=== PATIENT | male | born 1945 | race Caucasian/White ===

== ENCOUNTER 2025-10-25 20:09 | Inpatient (IN) | payer MEDICARE, OTHER ==
[~2025-10-25] VITALS: Ht 188 cm; Wt 77.0 kg
--- NOTE | 2025-10-25 20:16 | ED.PDOC ---
History of Present Illness HPI Comments 79-year-old male BIBA with prior medical history of [place], mi, hypertension, angina, hypotension, high lipids, TIA: Surgical history of cardiac stent, pacemaker, appendectomy, hernia repair, tonsillectomy and a chief complaint of chest pain. EMS report on the patient having had substernal chest pain upon pal pitation which radiates to the left arm in his a 9/10 on the pain scale which started today and was given 2 nitro and 325 mg of aspirin by spouse. EMS state that the patient was picked up at home in was given 150 mL of fluids due from having a blood pressure systolic of 104. Patient had a blood sugar 104 in route to the ER. Patient has currently complaining of the chest pain and nausea at this time. Denies any other symptoms at this time. Denies chills, fever, /V/D, SOB. No other associated symptoms, modifiers, recent injuries or sick contacts present at this time. Time Seen by MD: 20:15 Reviewed Notes: Nurses Notes, Medications, Allergies Allergies: Coded Allergies: NO KNOWN ALLERGIES (Unverified , 02/12/25) Information Source: Patient, Emergency Med Personnel Mode of Arrival: EMS Severity: Moderate Timing: Came on: Suddenly Duration: Since onset Prehospital treatment: None Past Medical History PAST MEDICAL HISTORY: High Lipids, HTN, Hypotension, ID, TIA Past Medical History (Other): [place] Surgical History: Appendectomy, Hernia Repair, Pacemaker, Tonsillectomy Surgical History (Other): Cardiac stent Family History Family History: Reviewed,noncontributory to illness, Family hx of Cancer, Family hx of heart ilsa, Family hx of Kidney ilsa Social History Smoker: Non-Smoker Alcohol: Denies ETOH Use Drugs: Denies Drug Use Lives In: Home Constitutional: denies: chills, diaphoresis, fatigue, fever, malaise, sweats, weakness, others EENTM: denies: blurred vision, double vision, ear bleeding, ear discharge, ear drainage, ear pain, ear ringing, eye pain, eye redness, hearing loss, mouth pain, mouth swelling, nasal discharge, nose bleeding, nose congestion, nose pain, photophobia, tearing, throat pain, throat swelling, voice changes, others Respiratory: denies: cough, hemoptysis, orthopnea, SOB at rest, shortness of breath, SOB with excertion, stridor, wheezing, others Cardiovascular: reports: chest pain, left arm pain; denies: dizzy spells, diaphoresis, Dyspnea on exertion, edema, irregular heart beat, lightheadedness, palpitations, PND, syncope, others Gastrointestinal: reports: nausea; denies: abdomen distended, abdominal pain, blood streaked bowels, constipated, diarrhea, dysphagia, difficulty swallowing, hematemesis, melena, poor appetite, poor fluid intake, rectal bleeding, rectal pain, vomiting, others Genitourinary: denies: burning, dysuria, flank pain, frequency, hematuria, incontinence, penile discharge, penile sore, pain, testicle pain, testicle swelling, urgency, others Neurological: denies: dizziness, fainting, headache, left sided numbness, left sided weakness, numbness, paresthesia, pre-existing deficit, right sided numbness, right sided weakness, seizure, speech problems, tingling, tremors, weakness, others Musculoskeletal: denies: back pain, gout, joint pain, joint swelling, muscle pain, muscle stiffness, neck pain, others Integumetry: denies: bruises, change in color, change in hair/nails, dryness, laceration, lesions, lumps, rash, wounds, others Allergic/Immunocompromised: denies: Difficulty Healing, Frequent Infections, Hives, Itching, others Hematologic/Lymphatic: denies: anemia, blood clots, easy bleeding, easy bruising, swollen glands, others Endocrine: denies: excessive hunger, excessive sweating, excessive thirst, excessive urination, flushing, intolerance to cold, intolerance to heat, unexplained weight gain, unexplained weight loss, others Psychiatric: denies: anxiety, bipolar disorder, depression, hopeless, panic disorder, schizophrenia, sleepless, suicidal, others All Other Systems: Reviewed and Negative Physical Exam General Appearance: Moderate Distress HEENT: Normal ENT Inspection, Pharynx Normal, TMs Normal Neck: Full Range of Motion, Non-Tender, Normal, Normal Inspection Respiratory: Chest Non-Tender, Lungs Clear, No Accessory Muscle Use, No Respiratory Distress, Normal Breath Sounds Cardiovascular: No Edema, No JVD, No Murmur, No Gallop, Normal Peripheral Pulses, Regular Rate/Rhythm, Other (Pacemaker to the left chest) Breast Exam: Deferred Gastrointestinal: No Organomegaly, Non Tender, No Pulsatile Mass, Normal Bowel Sounds, Soft Genitalia: Deferred Pelvic: Deferred Rectal: Deferred Extremities: No calf tenderness, Normal capillary refill, Normal inspection, Normal range of motion, Non-tender, No pedal edema Musculoskeletal : Apperance: Normal Neurologic: Alert, labor utilization superintendent II-XII nml as Tested, Motor Weakness, Normal Affect, Normal Mood, No Sensory Deficits Cerebellar Function: Normal Reflexes: Normal Skin: Dry, Normal Color, Warm Lymphatic: No Adenopathy Was a procedure done? Was a procedure done?: No EKG EKG : Pulse Rate (adult): 64 [place]: Normal Cardiac Rhythm: Paced Block: None Hypertrophy: None ST: Normal Differential Dx Considerations may include: ACS, ID, generalized weakness X-Ray, Labs, Meds, VS Vital Signs Date Time Temp Pulse Resp B/P (MAP) Pulse Ox O2 Delivery O2 Flow Rate FiO2 10/25/25 21:14 62 10/25/25 20:16 64 10/25/25 20:15 98.9 101 15 103/86 100 98.9 10/25/25 20:11 64 Lab Test 10/25/25 21:09 10/25/25 20:20 Range/Units Troponin I High Sensitivity Pending 13 </=54 ng/L White Blood Count 8.6 4.4-10.8 10^3/uL Red Blood Count 3.68 L 4.5-5.90 10^6/uL Hemoglobin 11.8 L 13.5-17.5 g/dL Hematocrit 34.6 L 41.0-53.0 % Mean Corpuscular Volume 94.1 80.0-100.0 fL Mean Corpuscular Hemoglobin 32.0 28.0-32.0 pg Mean Corpuscular Hemoglobin Concent 34.0 32.0-36.0 g/dL Red Cell Distribution Width 15.1 H 11.8-14.3 % Platelet Count 141 140-450 10^3/uL Mean Platelet Volume 10.1 6.9-10.8 fL Neutrophils (%) (Auto) 71.1 37.0-80.0 % Lymphocytes (%) (Auto) 17.2 10.0-50.0 % Monocytes (%) (Auto) 8.7 0.0-12.0 % Eosinophils (%) (Auto) 2.5 0.0-7.0 % Basophils (%) (Auto) 0.5 0.0-2.0 % Neutrophils # (Auto) 6.1 1.6-8.6 10 ^3/uL Lymphocytes # (Auto) 1.5 0.4-5.4 10 ^3/uL Monocytes # (Auto) 0.7 0-1.3 10 ^3/uL Eosinophils # (Auto) 0.2 0-0.8 10 ^3/uL Basophils # (Auto) 0 0-0.2 10 ^3/uL Nucleated Red Blood Cells 0.0 % Sodium Level 140 136-145 mmol/L Potassium Level 3.8 3.5-5.1 mmol/L Chloride Level 107 98-107 mmol/L Carbon Dioxide Level 22 20-31 mmol/L Anion Gap 11 5-15 Blood Urea Nitrogen 21 9-23 mg/dL Creatinine 0.54 L 0.700-1.30 mg/dL Glomerular Filtration Rate Calc 101 >90 mL/min BUN/Creatinine Ratio 38.9 H 10.0-20.0 Serum Glucose 104 74-106 mg/dL Calcium Level 8.2 L 8.7-10.4 mg/dL IV Hep-Lock was established. The patient's CBC and chemistry panel are within normal limits The 1st troponin level is within normal limits. At this time, the patient is being admitted The chest x-ray shows no sign of any abnormalities The patient is being admitted at this time Images Reviewed?: Images reviewed and evaluated by me Time of 1ST Reevaluation: 20:45 Reevaluation 1ST: Unchanged Patient Education/Counseling: Diagnosis, Treatment, Prognosis Family Education/Counseling: No Family Present SEPSIS Sepsis Screen Physician Orders Chest Portable (10/25/25 20:23) Heplock Iv (10/25/25 20:10) Tie Puller (10/25/25 20:10) Blood Pressure (10/25/25 20:10) Pulse Oximetry (10/25/25 20:10) Urinalysis (10/25/25 20:10) Troponin-I Hs (10/25/25 21:10) Troponin-I Hs (10/25/25 23:10) Electrocardigram (10/25/25 23:10) Vital Signs Date Time Temp Pulse Resp B/P (MAP) Pulse Ox O2 Delivery O2 Flow Rate FiO2 10/25/25 21:14 62 10/25/25 20:16 64 10/25/25 20:15 98.9 101 15 103/86 100 98.9 10/25/25 20:11 64 Laboratory Tests Test 10/25/25 20:20 White Blood Count 8.6 10^3/uL (4.4-10.8) Departure 1 Departure Time of Disposition: 21:33 Impression: Primary Impression: Acute coronary syndrome Disposition: 09 ADMITTED INPATIENT Admit to: Tele Condition: Fair Critical Care Note Critical Care Time?: Yes (45 min-critical care time only) Stability Stability form required: Yes Unstable for transfer: Telemetry monitoring (Telemetry monitoring required), ED Physician Assesment (Clinical assesment) Heart Score Heart Score: Heart Score Response (Comments) Value History Moderate Suspicious 1 EKG Repolarization Disturb 1 Age >65 2 Risk Factors >3 or Hx ASHD 2 Troponin Normal limit 0 Total 6 I personally scribed for PREETHI REILLY MD ([email or web address]) on 10/25/25 at 20:16. Electronically submitted by Anthony Roach ([email or web address]). PREETHI REILLY MD Oct 25, 2025 20:16
--- NOTE | 2025-10-25 20:24 | ECG ---
[facility] Test Date: 2025-10-25 Test Time: 20:11:58 Pat Name: PANCHO RODRIGUEZ Department: ED Room: 0292T Gender: M Desulphuring Operator: MORELIA : 1945 Requested By: PREETHI REILLY Order Number: [id number] Reading MD: Angelo Jeff Measurements Intervals [place] Rate: 64 P: 62 [place]: 64 QRS: 269 QRSD: 153 T: 61 QT: 450 QTc: 465 Interpretive Statements Atrial-sensed ventricular-paced rhythm No further analysis attempted due to paced rhythm Electronically Signed On 10-26-2025 17:49:01 PST by Angelo Jeff Please click the below link to view image of tracing.
[2025-10-25 20:31] LABS: Hematocrit 34.6 % (41.0-53.0); Hemoglobin 11.8 g/dL (13.5-17.5); Mean Corpuscular Hemoglobin 32.0 pg (28.0-32.0); Mean Corpuscular Volume 94.1 fL (80.0-100.0); Nucleated Red Blood Cells % 0.0 %
[2025-10-25 20:40] LABS: Potassium 3.8 mmol/L (3.5-5.1); Sodium 140 mmol/L (136-145)
[2025-10-25 20:41] LABS: Anion Gap 11 (5-15); Carbon Dioxide 22 mmol/L (20-31)
[2025-10-25 20:46] LABS: BUN/Creatinine Ratio 38.9 (10.0-20.0); Blood Urea Nitrogen 21 mg/dL (9-23); Glucose 104 mg/dL (74-106)
[2025-10-25 20:48] LABS: Calcium 8.2 mg/dL (8.7-10.4); Chloride 107 mmol/L (98-107)
--- NOTE | 2025-10-25 21:00 | DVH ---
CHEST RADIOGRAPH Indication: cp Technique: Single frontal view of the chest was obtained Comparison: XY CHEST PORTABLE on DOS: 06/28/25, XY CHEST PORTABLE on DOS: 10/26/24, XY CHEST PORTABLE on DOS: 06/18/24 FINDINGS: Lines and Tubes: None Lungs: No focal consolidation. Pleura: No effusion. No pneumothorax. Cardiomediastinal contours: Heart size is within normal limits with mild atherosclerotic calcification and uncoiling of the aorta. Left-sided approach dual lead pacemaker terminating within right atrium and right ventricle. Bones: No acute osseous abnormality. IMPRESSION: No acute cardiopulmonary disease.
--- NOTE | 2025-10-25 21:17 | ECG ---
[facility] Test Date: 2025-10-25 Test Time: 21:14:23 Pat Name: PANCHO RODRIGUEZ Department: ED Room: 0292T Gender: M Meter And Service Line Inspector: MORELIA : 1945 Requested By: PREETHI REILLY Order Number: [id number] Reading MD: Angelo Jeff Measurements Intervals [place] Rate: 62 P: 0 LA: 221 QRS: 267 QRSD: 153 T: 65 QT: 454 QTc: 461 Interpretive Statements Ventricular-paced rhythm No further analysis attempted due to paced rhythm Electronically Signed On 10-26-2025 17:49:05 PST by Angelo Jeff Please click the below link to view image of tracing.
[2025-10-25] MEDS ORDERED: NITROGLYCERIN 0.4 MG SL TAB SL PRN (22:00)
[2025-10-25] MEDS ORDERED: MORPHINE SULFATE INJ 2 MG/ml SYRG IV PRN (22:00)
[2025-10-25] MEDS: PANTOPRAZOLE 40 MG TAB PO ONE (22:30)
--- NOTE | 2025-10-25 22:37 | DVHHPRES ---
History of Present Illness Resident Creating Document: MATILDE ZALDIVAR RESIDENT History of Present Illness This is a 79-year-old male with past medical history ofMI ,1stent placed on 2021, HTN, hypotension, HLD, TIA, PPM since 1990,appendectomy, hernia repair, tonsillectomy , GERD, BPH, Dupuytren contracture both hand, hypertension, bed- bound since 2022 after stroke brought by EMS due to chest pain which is 9/10 intensity, retrosternal, localized, no aggravating or relieving factor. As per patient, provided him 2 dose of nitroglycerin 5 minutes apart but chest pain not relieved. Family member called 911, EMS given 325 mg of aspirin and brought to the hospital. Patient looks anxious and stated he had panic attack when he felt chest pain and now chest pain improving to 6/10 intensity. Patient seen by Dr. Cardona, pacemaker since 1990 and pacemaker checked 2 years ago. Angiogram followed by 1 stent placed on 2021. Patient compliance is medication and currently denies any headache, fever, SOB, abdominal pain, dysuria. Past medical history: As above Past surgical history: Stent placed on 2021, appendectomy, hernia repair, tonsillectomy Family history: Nothing contributory Personal history: Denies any smoking, illicit drug use or EtOH use Allergy: No known allergy PCP: Dr. Coleman Home medication: pantoprazole, atorvastatin, finasteride, Lopid mobile, KCl, propranolol, pregabalin, losartan, cyclobenzaprine, midodrine, Review of Systems Constitutional: Yes: Chills, Weakness, Malaise; No: Fever, Sweats, Other Eyes: No: Pain, Vision change, Conjunctivae inflammation, Eyelid inflammation, Other, Redness ENT: Other (Hearing difficulty); No: Ear pain, Ear discharge, Nose pain, Nose discharge, Nose congestion, Mouth pain, Mouth swelling, Throat pain, Throat swelling Respiratory: No: Cough, Dry, Shortness of breath, SOB with excertion, Wheezing, Hemoptysis, Pleuritic Pain, Sputum, Wheezing, Other Cardiovascular: Chest Pain, Palpitations; No: Orthopnea, Paroxysmal Noc. Dyspnea, Edema, Lt Headedness, Other Gastrointestinal: No: Nausea, Vomiting, Abdominal Pain, Diarrhea, Constipation, Melena, Hematochezia, Other Genitourinary: No Dysuria, No Frequency, No Incontinence, No Hematuria, No Retention, No Other Musculoskeletal: back pain; No: other, neck pain, shoulder pain, arm pain, hand pain, leg pain, foot pain Skin: No: Rash, Lesions, Jaundice, Bruising, Other Neurological: Weakness, Other (Gait instability and bed-bound); No: Numbness, Incoordination, Change in speech, Confusion, Seizures Allergies: Coded Allergies: NO KNOWN ALLERGIES (Unverified , 02/12/25) Medications Current Medications Medications Dose Ordered Sig/Juan Route Start Time Stop Time Status Last Admin Dose Admin Acetaminophen/ Hydrocodone Bitart 1 tab Q4HP PRN PO 10/25/25 22:00 UNV Enoxaparin Sodium 40 mg DAILY SC 10/26/25 10:00 UNV Nitroglycerin 0.4 mg Q5MINP PRN SL 10/25/25 22:00 UNV Morphine Sulfate 2 mg Q30M PRN IV 10/25/25 22:00 UNV Polyethylene Glycol 17 gm DAILY PO 10/26/25 10:00 UNV Pantoprazole Sodium 40 mg DAILY@0600 PO 10/26/25 06:00 UNV Exam Vital Signs Vital Signs Date Time Temp Pulse Resp B/P (MAP) Pulse Ox O2 Delivery O2 Flow Rate FiO2 10/25/25 21:14 62 10/25/25 20:15 98.9 15 103/86 100 98.9 General Appearance: Alert, Oriented X3, Cooperative, mild distress HEENT: Atraumatic, PERRLA, EOMI Respiratory: Clear to auscultation Cardiovascular: Regular rate, Normal S1, Normal S2, No murmurs Abdominal: Normal bowel sounds, Soft, No tenderness Extremities: No clubbing, No cyanosis, No edema, Normal pulses, No tenderness/swelling Skin: No rashes, No breakdown, No significant lesion Neuro: Sensation intact, Other (Gait instability, macerated decreased bilateral lower, Dupuytren contracture bilateral hands) Labs/Xrays Labs Test 10/25/25 21:09 10/25/25 20:20 Range/Units Troponin I High Sensitivity 13 </=54 ng/L White Blood Count 8.6 4.4-10.8 10^3/uL Red Blood Count 3.68 L 4.5-5.90 10^6/uL Hemoglobin 11.8 L 13.5-17.5 g/dL Hematocrit 34.6 L 41.0-53.0 % Mean Corpuscular Volume 94.1 80.0-100.0 fL Mean Corpuscular Hemoglobin 32.0 28.0-32.0 pg Mean Corpuscular Hemoglobin Concent 34.0 32.0-36.0 g/dL Red Cell Distribution Width 15.1 H 11.8-14.3 % Platelet Count 141 140-450 10^3/uL Mean Platelet Volume 10.1 6.9-10.8 fL Neutrophils (%) (Auto) 71.1 37.0-80.0 % Lymphocytes (%) (Auto) 17.2 10.0-50.0 % Monocytes (%) (Auto) 8.7 0.0-12.0 % Eosinophils (%) (Auto) 2.5 0.0-7.0 % Basophils (%) (Auto) 0.5 0.0-2.0 % Neutrophils # (Auto) 6.1 1.6-8.6 10 ^3/uL Lymphocytes # (Auto) 1.5 0.4-5.4 10 ^3/uL Monocytes # (Auto) 0.7 0-1.3 10 ^3/uL Eosinophils # (Auto) 0.2 0-0.8 10 ^3/uL Basophils # (Auto) 0 0-0.2 10 ^3/uL Nucleated Red Blood Cells 0.0 % Sodium Level 140 136-145 mmol/L Potassium Level 3.8 3.5-5.1 mmol/L Chloride Level 107 98-107 mmol/L Carbon Dioxide Level 22 20-31 mmol/L Anion Gap 11 5-15 Blood Urea Nitrogen 21 9-23 mg/dL Creatinine 0.54 L 0.700-1.30 mg/dL Glomerular Filtration Rate Calc 101 >90 mL/min BUN/Creatinine Ratio 38.9 H 10.0-20.0 Serum Glucose 104 74-106 mg/dL Calcium Level 8.2 L 8.7-10.4 mg/dL SEPSIS Sepsis Screen Date sepsis recognized/suspect: Oct 25, 2025 Time Sepsis recognized/suspect: 2007 Recent Procedure: No On Antibiotic Therapy: No Respiratory Rate >20: No Heart Rate >90: Yes Temp<36 C (96.8 F) or >38.3 C: No SBP <90 or MAP <65 mmHG: No New Acute Mental Status Change: No Is the patient on CPAP, BIPAP,: No Physician Orders Chest Portable (10/25/25 20:23) Heplock Iv (10/25/25 20:10) Postal Support Employee (10/25/25 20:10) Blood Pressure (10/25/25 20:10) Pulse Oximetry (10/25/25 20:10) Urinalysis (10/25/25 20:10) Troponin-I Hs (10/25/25 23:10) Electrocardigram (10/25/25 23:10) Admit (10/25/25 21:58) Code Status (10/25/25 21:58) Hydrocodone-Acet 5/325mg Tab ([place] 5/32 (10/25/25 22:00) Enoxaparin Sodium (Lovenox) (10/26/25 10:00) Cardiac Diet-2gna,Lofat,Lochol (10/26/25 Breakfast) Echo 2d Mode Cardiac Dop (10/25/25 21:58) Nitroglycerin Sublingual (Ntrostat Subli (10/25/25 22:00) Morphine Sulfate Injection (10/25/25 22:00) Oxygen By Nasal Cannula (10/25/25 21:58) Stat Ekg For Chest Pain (10/25/25 21:58) Notify Md Of Changes From Base (10/25/25 21:58) Headwaitress For 24 Hours (10/25/25 21:58) Emergency Dysrhythmia Protocol (10/25/25 21:58) Rhythm Strips Once Every Shift (10/25/25 21:58) Polyethylene Glycol 17g Powder (Miralax (10/26/25 10:00) Pantoprazole Tablet (Protonix Tablet) (10/26/25 06:00) Pantoprazole Tablet (Protonix Tablet) (10/25/25 22:00) Vital Signs Date Time Temp Pulse Resp B/P (MAP) Pulse Ox O2 Delivery O2 Flow Rate FiO2 10/25/25 21:14 62 10/25/25 20:16 64 10/25/25 20:15 98.9 101 15 103/86 100 98.9 10/25/25 20:11 64 Laboratory Tests Test 10/25/25 20:20 White Blood Count 8.6 10^3/uL (4.4-10.8) Assessment/Plan Assessment/Plan Chest pain rule out acute coronary syndrome H/o MO s/p 1 stent placed on 2021 Hypertensive heart disease Pacemaker since 1990 Hyperlipidemia Patient came with chest pain, nausea, palpitation S/P Nitroglycerin and aspirin ON ADMISSION, tachycardia, BP - 103/86 Troponin: 13, repeat troponin 13 CXR: No acute cardiopulmonary, left-sided ppm. EKG: ventricular paced rhythm, heart rate 64, QTC 465 Clopidogrel Propranolol Losartan Echocardiogram Pacemaker interrogation Telemonitor History of stroke 2021 since then bed-bound Chronic low-back pain Dupuytren's contracture both hands Peripheral neuropathy Pressure sores right heel Pregabalin Cyclobenzaprine Fall precaution wound Consult Physical therapy GERD Continue pantoprazole BPH Finasteride Anemia of chronic disease Hemoglobin 11.8, HCT 34.6, MCV 94.1, RDW 15.1 No active signs symptoms of bleeding Hypocalcemia serum consult rate 8.2 follow labs Diet: Cardiac DVT prophylaxis: Lovenox GI prophylaxis: Pantoprazole Goals of care discussions. More than 29 minute spent with patient. Full code status. Case discussed with Dr. Quigley Plan discussed with: Patient, Other (Nurse) My Orders Orders - MATILDE ZALDIVAR RESIDENT Procedure Category Date Status Time Admit ADMIT 10/25/25 Transmitted 21:58 Code Status CODE 10/25/25 Transmitted 21:58 Hydrocodone-Acet PHA 10/25/25 Logged 5/325mg Tab ([place] 22:00 Enoxaparin Sodium PHA 10/26/25 Logged (Lovenox) 10:00 Cardiac DIET 10/26/25 Transmitted Diet-2gna,Lofat,Lochol Breakfast Echo 2d Mode Cardiac US 10/25/25 Logged DOP 21:58 Nitroglycerin PHA 10/25/25 Logged Sublingual (Ntrostat 22:00 Morphine Sulfate PHA 10/25/25 Logged Injection 22:00 Oxygen By Nasal RT 10/25/25 Transmitted Cannula 21:58 Stat Ekg For Chest [facility] 10/25/25 In Process Pain 21:58 Notify Of Changes [facility] 10/25/25 In Process From Base 21:58 Headwaitress For [facility] 10/25/25 In Process 24 Hours 21:58 Emergency Dysrhythmia [facility] 10/25/25 In Process Protocol 21:58 Rhythm Strips Once [facility] 10/25/25 In Process Every Shift 21:58 Polyethylene Glycol PHA 10/26/25 Logged 17g Powder (Miralax 10:00 Pantoprazole Tablet PHA 10/26/25 Logged (Protonix Tablet) 06:00 Pantoprazole Tablet PHA 10/25/25 Logged (Protonix Tablet) 22:00 Date of Service: Oct 25, 2025 Billing Provider: CHRISTINA QUIGLEY MD Common Visit Codes: 14937-WWYYEFN INP/OBS CARE (HIGH) Secondary Visit Codes: 36481-[id number] CARE PLAN 30 MINUTES MATILDE ZALDIVAR RESIDENT Oct 25, 2025 22:37
[2025-10-25 23:00] VITALS: PULSE 60; RESP 11; O2SAT 97
[2025-10-25] MEDS: PROPRANOLOL HCL 20 MG TAB PO ONE (23:00)
--- NOTE | 2025-10-25 23:11 | ECG ---
[facility] Test Date: 2025-10-25 Test Time: 23:09:18 Pat Name: PANCHO RODRIGUEZ Department: ED Room: 0292T Gender: M Claim Benefit Specialist: MORELIA : 1945 Requested By: PREETHI REILLY Order Number: [id number] Reading MD: Angelo Jeff Measurements Intervals [place] Rate: 60 P: 0 [place]: 166 QRS: -90 QRSD: 161 T: 58 QT: 477 QTc: 477 Interpretive Statements Atrial-ventricular dual-paced complexes No further analysis attempted due to paced rhythm Electronically Signed On 10-26-2025 17:50:19 PST by Angelo Jeff Please click the below link to view image of tracing.
[2025-10-25] MEDS: ATORVASTATIN 20 MG TAB PO ONE (23:37)
[2025-10-26] VITALS (9 sets, daily range): BP systolic 85–121; BP diastolic 37–74; PULSE 70–81; RESP 16–19; TEMP 96.6–98.7; O2SAT 94–97
[2025-10-26 00:38] LABS: Urine Protein, UAD Negative (Negative)
[2025-10-26] MEDS: MORPHINE SULFATE 4 MG/ML SYR/VIAL IV ONE (04:27)
[2025-10-26] MEDS: PANTOPRAZOLE 40 MG TAB PO SCH (05:56)
[2025-10-26] MEDS: PREGABALIN 25 MG CAP PO SCH (05:56)
[2025-10-26] MEDS: POLYETHYLENE GLYCOL 17 GM PWDR PO SCH (09:11)
[2025-10-26] MEDS: CLOPIDOGREL BISULFATE 75 MG TAB PO SCH (09:11)
[2025-10-26] MEDS: FINASTERIDE 5 MG TAB PO SCH (09:11)
[2025-10-26] MEDS: ENOXAPARIN SOD 40 MG/0.4 ML SYRINGE SC SCH (09:12)
[2025-10-26 10:29] LABS: Hematocrit 36.2 % (41.0-53.0); Hemoglobin 12.4 g/dL (13.5-17.5); Mean Corpuscular Hemoglobin 32.1 pg (28.0-32.0); Mean Corpuscular Volume 94.1 fL (80.0-100.0); Nucleated Red Blood Cells % 0.0 %
[2025-10-26 10:42] LABS: Alanine Aminotransferase 14 U/L (7-40); Alkaline Phosphatase 62 U/L (46-116); Anion Gap 7 (5-15); BUN/Creatinine Ratio 30.8 (10.0-20.0); Blood Urea Nitrogen 20 mg/dL (9-23); Calcium 8.7 mg/dL (8.7-10.4); Carbon Dioxide 27 mmol/L (20-31); Chloride 104 mmol/L (98-107); Cholesterol 90 mg/dL (< 200); Potassium 4.0 mmol/L (3.5-5.1); Sodium 138 mmol/L (136-145); Total Protein 5.8 g/dL (5.7-8.2); Triglycerides 65 mg/dL (< 150)
[2025-10-26 10:43] LABS: Albumin 3.1 g/dL (3.2-4.8); Bilirubin, Total 1.3 mg/dL (0.2-1.0); Glucose 123 mg/dL (74-106); HDL Cholesterol 28 mg/dL (40-59)
--- NOTE | 2025-10-26 13:44 | ECG ---
[facility] Test Date: 2025-10-26 Test Time: 03:34:09 Pat Name: PANCHO RODRIGUEZ Department: Room: [facility]T B Gender: M Mortgage Loan Counselor: DWIGHT : 1945 Requested By: MATILDE ZALDIVAR Order Number: [id number] Reading MD: Angelo Jeff Measurements Intervals [place] Rate: 75 P: 0 LA: 76 QRS: 266 QRSD: 165 T: 68 QT: 463 QTc: 518 Interpretive Statements Sinus rhythm Short LA interval Nonspecific IVCD with LAD Anterolateral infarct, old Electronically Signed On 10-26-2025 17:38:12 PST by Angelo Jeff Please click the below link to view image of tracing.
[2025-10-26] MEDS ORDERED: ZOFR4T PO (15:04)
[2025-10-26] MEDS ORDERED: CLOP75TA28 PO (15:04)
[2025-10-26] MEDS ORDERED: MIDO5TAB22 PO (15:04)
[2025-10-26] MEDS ORDERED: NITR0.4S29 SL (15:04)
[2025-10-26] MEDS: DOCUSATE SOD 100 MG CAP PO PRN (16:11)
--- NOTE | 2025-10-26 19:24 | DVHSR ---
APPROVED REPORT EXAM: Two-dimensional and M-mode echocardiogram with Doppler and color Doppler. Blood Pressure: 109/64 mmHg INDICATION History of stent Surgery/Intervention Pacemaker: RISK FACTORS Height: 6'2", DIMENSIONS LVDd 4.0 (3.8-5.7cm) LA (2D) 3.5 (1.9-4.0cm) Aortic Root (2.0-3.7cm) LVDs 2.8 (2.5-4.0cm) LA (MM) (1.9-4.0cm) Aortic Cusp Exc (1.5-2.0cm) EF (%) 56.0 (55-70%) Rt. Atrium (1.9-4.0cm) Asc. Aorta cm Mitral Valve Mitral Mitral Stenosis E/A ratio 0.0 2D MVA cm2 Aortic Valve Aortic Valve Aortic Stenosis V1 0.91m/s AO Mean GR. 5mmHg V2 1.51m/s AO Peak GR. 9mmHg LVOT Diameter 2.0 (1.8-2.4cm) Doppler KEYLA 1.89cm2 AI P 1/2 Time 498.99ms Other Information Quality : Technically Limited Rhythm : Technically limited study due to body habitus and patient position. Conclusion Technically good study. Sinus rhythm. Concentric LVH. Left atrial enlargement. Mild aortic sclerosis. Tricuspid and pulmonic or structurally normal the mitral is normal. Left ventricular function is preserved at 60% with normal RV function. There is impaired diastolic relaxation based on mitral inflow patterns. Impaired diastolic relaxation/diastolic dysfunction. [id number] aortic insufficiency. Moderate tricuspid regurgitation. No pericardial effusion masses or vegetations.
[2025-10-26] MEDS: ATORVASTATIN 20 MG TAB PO SCH (22:46)
[2025-10-27] VITALS (8 sets, daily range): BP systolic 101–109; BP diastolic 52–65; PULSE 78–92; RESP 16–19; TEMP 96.7–98.7; O2SAT 92–99
[2025-10-27] MEDS: HYDROcodone-ACET 5/325MG TAB PO PRN (04:16)
--- NOTE | 2025-10-27 16:34 | DVHPN2 ---
Subjective I am assuming the care of the patient from today onwards patient is here for chest pain. Changes from previous H/P or p: No Changes Eyes: No Pain, No Vision change, No Conjunctivae inflammation, No Eyelid inflammation, No Other, No Redness ENT: No Ear pain, No Ear discharge, No Nose pain, No Nose discharge, No Nose congestion, No Mouth pain, No Mouth swelling, No Throat pain, No Throat swelling; Other (Hearing difficulty) Cardiovascular: Chest Pain, Palpitations; No Orthopnea, No Paroxysmal Noc. Dyspnea, No Edema, No Lt Headedness, No Other Respiratory: No Cough, No Dry, No Shortness of breath, No SOB with excertion, No Wheezing, No Hemoptysis, No Pleuritic Pain, No Sputum, No Other Gastrointestinal: No Nausea, No Vomiting, No Abdominal Pain, No Diarrhea, No Constipation, No Melena, No Hematochezia, No Other Genitourinary: No Dysuria, No Frequency, No Incontinence, No Hematuria, No Retention, No Other Musculoskeletal: No other, No neck pain, No shoulder pain, No arm pain; back pain; No hand pain, No leg pain, No foot pain Skin: No Rash, No Lesions, No Jaundice, No Bruising, No Other Objective Vitals Vital Signs Date Time Temp Pulse Resp B/P (MAP) Pulse Ox O2 Delivery O2 Flow Rate FiO2 10/27/25 12:57 98.0 78 16 102/60 (74) 92 98.0 10/27/25 08:00 Room Air* 0 21 Intake/Output Intake and Output 10/27/25 07:00 Intake Total 1000 ml Output Total 850 ml Balance 150 ml Intake Oral 1000 ml Output Urine Total 850 ml # Bowel Movements 5 Exam HEENT pupils are reactive Neck is supple CV is S1-S2 regular rate and rhythm Diminished breath sounds bases GI positive bowel sound 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 Medications Current Medications Medications Dose Ordered Sig/Juan Route Start Time Stop Time Status Last Admin Dose Admin Acetaminophen/ Hydrocodone Bitart 1 tab Q4HP PRN PO 10/25/25 22:00 10/27/25 04:16 1 TAB Enoxaparin Sodium 40 mg DAILY SC 10/26/25 10:00 10/27/25 08:42 40 MG Nitroglycerin 0.4 mg Q5MINP PRN SL 10/25/25 22:00 Morphine Sulfate 2 mg Q30M PRN IV 10/25/25 22:00 Polyethylene Glycol 17 gm DAILY PO 10/26/25 10:00 10/27/25 08:42 17 GM Pantoprazole Sodium 40 mg DAILY@0600 PO 10/26/25 06:00 10/27/25 06:16 40 MG Clopidogrel Bisulfate 75 mg DAILY PO 10/26/25 10:00 10/27/25 08:41 75 MG Atorvastatin Calcium 40 mg HS PO 10/26/25 22:00 10/26/25 22:46 40 MG Finasteride 5 mg DAILY PO 10/26/25 10:00 10/27/25 08:41 5 MG Pregabalin 50 mg TID PO 10/26/25 06:00 10/27/25 14:04 50 MG Docusate Sodium 100 mg DAILYPRN PRN PO 10/26/25 15:15 10/26/25 16:11 100 MG Laboratory Results Laboratory Tests 10/26/25 10:02 Urinalysis Test 10/26/25 00:06 Urine Color Yellow (Yellow) Urine Clarity Clear (Clear) Urine pH 7.0 (5.0-9.0) Urine Specific [place] 1.031 (1.001-1.035) Urine Protein Negative (Negative) Urine Ketones 1+ (Negative) H Urine Blood Negative /uL (Negative) Urine Nitrite Negative (Negative) Urine Bilirubin Negative (Negative) Urine Urobilinogen 2 mg/dL (Negative) H Urine Leukocyte Esterase Negative /uL (Negative) Urine RBC 2 /hpf (0 - 3) Urine Microscopic WBC 1 /HPF (0-3) Urine Squamous Epithelial Cells None seen /hpf (<5) Urine Bacteria None seen /hpf (None Seen) Urine Mucus Few (None Seen) Urine Glucose Normal mg/dL (Normal) Assessment/Plan Assessment/Plan 79-year-old male with a known history of CAD status post PCI with a one stent, hypertension, status post pacemaker, dyslipidemia, history of TIA initially presented to the hospital with the chest pain found to have 1. Chest pain ruled out [place] 2. CAD status post PCI 3. Status post pacemaker 4. Hypertension 5. Dyslipidemia 6. TIA -2D echo cardiology consultation, pacemaker interrogation Plan discussed with: Patient My Orders Orders - LYLY OCHOA MD Procedure Category Date Status Time Apply Barrier Cream NEFTALI 10/26/25 In Process 14:19 * Dietary Consult CONS 10/26/25 Transmitted 17:43 Cleanse Wound With NEFTALI 10/26/25 In Process Wound Clean 17:43 Date of Service: Oct 26, 2025 Billing Provider: LYLY OCHOA MD Common Visit Codes: [id number] INP/OBS CARE(HIGH) LYLY OCHOA MD Oct 27, 2025 16:34
--- NOTE | 2025-10-27 16:35 | DVHPN2 ---
Subjective Cardiology consultation pending patient is currently denies any chest pain. Changes from previous H/P or p: No Changes Eyes: No Pain, No Vision change, No Conjunctivae inflammation, No Eyelid inflammation, No Other, No Redness ENT: No Ear pain, No Ear discharge, No Nose pain, No Nose discharge, No Nose congestion, No Mouth pain, No Mouth swelling, No Throat pain, No Throat swelling; Other (Hearing difficulty) Cardiovascular: Chest Pain, Palpitations; No Orthopnea, No Paroxysmal Noc. Dyspnea, No Edema, No Lt Headedness, No Other Respiratory: No Cough, No Dry, No Shortness of breath, No SOB with excertion, No Wheezing, No Hemoptysis, No Pleuritic Pain, No Sputum, No Other Gastrointestinal: No Nausea, No Vomiting, No Abdominal Pain, No Diarrhea, No Constipation, No Melena, No Hematochezia, No Other Genitourinary: No Dysuria, No Frequency, No Incontinence, No Hematuria, No Retention, No Other Musculoskeletal: No other, No neck pain, No shoulder pain, No arm pain; back pain; No hand pain, No leg pain, No foot pain Skin: No Rash, No Lesions, No Jaundice, No Bruising, No Other Objective Vitals Vital Signs Date Time Temp Pulse Resp B/P (MAP) Pulse Ox O2 Delivery O2 Flow Rate FiO2 10/27/25 12:57 98.0 78 16 102/60 (74) 92 98.0 10/27/25 08:00 Room Air* 0 21 Intake/Output Intake and Output 10/27/25 07:00 Intake Total 1000 ml Output Total 850 ml Balance 150 ml Intake Oral 1000 ml Output Urine Total 850 ml # Bowel Movements 5 Exam HEENT pupils are reactive Neck is supple CV is S1-S2 regular rate and rhythm Diminished breath sounds bilateral lung bases GI positive bowel sound 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 Medications Current Medications Medications Dose Ordered Sig/Juan Route Start Time Stop Time Status Last Admin Dose Admin Acetaminophen/ Hydrocodone Bitart 1 tab Q4HP PRN PO 10/25/25 22:00 10/27/25 04:16 1 TAB Enoxaparin Sodium 40 mg DAILY SC 10/26/25 10:00 10/27/25 08:42 40 MG Nitroglycerin 0.4 mg Q5MINP PRN SL 10/25/25 22:00 Morphine Sulfate 2 mg Q30M PRN IV 10/25/25 22:00 Polyethylene Glycol 17 gm DAILY PO 10/26/25 10:00 10/27/25 08:42 17 GM Pantoprazole Sodium 40 mg DAILY@0600 PO 10/26/25 06:00 10/27/25 06:16 40 MG Clopidogrel Bisulfate 75 mg DAILY PO 10/26/25 10:00 10/27/25 08:41 75 MG Atorvastatin Calcium 40 mg HS PO 10/26/25 22:00 10/26/25 22:46 40 MG Finasteride 5 mg DAILY PO 10/26/25 10:00 10/27/25 08:41 5 MG Pregabalin 50 mg TID PO 10/26/25 06:00 10/27/25 14:04 50 MG Docusate Sodium 100 mg DAILYPRN PRN PO 10/26/25 15:15 10/26/25 16:11 100 MG Laboratory Results Laboratory Tests 10/26/25 10:02 Urinalysis Test 10/26/25 00:06 Urine Color Yellow (Yellow) Urine Clarity Clear (Clear) Urine pH 7.0 (5.0-9.0) Urine Specific [place] 1.031 (1.001-1.035) Urine Protein Negative (Negative) Urine Ketones 1+ (Negative) H Urine Blood Negative /uL (Negative) Urine Nitrite Negative (Negative) Urine Bilirubin Negative (Negative) Urine Urobilinogen 2 mg/dL (Negative) H Urine Leukocyte Esterase Negative /uL (Negative) Urine RBC 2 /hpf (0 - 3) Urine Microscopic WBC 1 /HPF (0-3) Urine Squamous Epithelial Cells None seen /hpf (<5) Urine Bacteria None seen /hpf (None Seen) Urine Mucus Few (None Seen) Urine Glucose Normal mg/dL (Normal) Assessment/Plan Assessment/Plan 79-year-old male with a known history of CAD status post PCI with a one stent, hypertension, status post pacemaker, dyslipidemia, history of TIA initially presented to the hospital with the chest pain found to have 1. Chest pain ruled out [place] 2. CAD status post PCI 3. Status post pacemaker 4. Hypertension 5. Dyslipidemia 6. TIA -follow up 2D echo follow up pacemaker interrogation follow up Cardiology recommendations. -physical therapy evaluation and treatment. Plan discussed with: Other My Orders Orders - LYLY OCHOA MD Procedure Category Date Status Time Apply Barrier Cream NEFTALI 10/26/25 In Process 14:19 * Dietary Consult CONS 10/26/25 Transmitted 17:43 Cleanse Wound With NEFTALI 10/26/25 In Process Wound Clean 17:43 Date of Service: Oct 27, 2025 Billing Provider: LYLY OCHOA MD Common Visit Codes: [id number] INP/OBS CARE(HIGH) LYLY OCHOA MD Oct 27, 2025 16:35
[2025-10-28] VITALS (8 sets, daily range): BP systolic 94–157; BP diastolic 48–133; PULSE 76–106; RESP 15–19; TEMP 96.7–97.8; O2SAT 92–98
[2025-10-28] MEDS: SODIUM CHLORIDE 0.9% 1,000 ML IV ONE ×2 (13:16→15:23)
[2025-10-29] VITALS (8 sets, daily range): BP systolic 96–136; BP diastolic 51–99; PULSE 68–85; RESP 16–18; TEMP 97–98.2; O2SAT 96–98
[2025-10-30] VITALS (8 sets, daily range): BP systolic 99–121; BP diastolic 46–65; PULSE 72–85; RESP 16–19; TEMP 96.3–99.3; O2SAT 96–100
--- NOTE | 2025-10-30 10:05 | DVHPN2 ---
Progress Note - Dictate Date Seen: Oct 29, 2025 Medical Necessity Reason Pt with a Central, PICC or Fol: No Subjective PT WITH SS COMPLEX OF CHEST PAIN TROPONIN NEGATIVE ECG NO ACUTE CHANGES PMH ; ORGANIC HD HTN CAD S/P PTCA STENT 2021 HX OF [place] SSS S/P DUAL PPI GERD BPH HX OF CVA NOW BED BOUND vital signs Vital Sign Date Time Temp Pulse Resp B/P (MAP) Pulse Ox O2 Delivery O2 Flow Rate FiO2 10/30/25 09:00 96.8 72 16 107/65 (79) 97 96.8 10/29/25 20:00 Room Air* 0 21 Total Intake and Output 10/29/25 10/29/25 10/30/25 15:00 23:00 07:00 Intake Total 1530 ml 200 ml Output Total 800 ml 350 ml Balance 730 ml -150 ml medications Current Medications Medications Dose Ordered Sig/Juan Route Start Time Stop Time Status Last Admin Dose Admin Acetaminophen/ Hydrocodone Bitart 1 tab Q4HP PRN PO 10/25/25 22:00 10/30/25 04:54 1 TAB Enoxaparin Sodium 40 mg DAILY SC 10/26/25 10:00 10/30/25 09:50 40 MG Nitroglycerin 0.4 mg Q5MINP PRN SL 10/25/25 22:00 Morphine Sulfate 2 mg Q30M PRN IV 10/25/25 22:00 Polyethylene Glycol 17 gm DAILY PO 10/26/25 10:00 10/29/25 10:22 17 GM Pantoprazole Sodium 40 mg DAILY@0600 PO 10/26/25 06:00 10/30/25 06:56 40 MG Clopidogrel Bisulfate 75 mg DAILY PO 10/26/25 10:00 10/30/25 09:50 75 MG Atorvastatin Calcium 40 mg HS PO 10/26/25 22:00 10/29/25 22:52 40 MG Finasteride 5 mg DAILY PO 10/26/25 10:00 10/30/25 09:50 5 MG Pregabalin 50 mg TID PO 10/26/25 06:00 10/30/25 06:56 50 MG Docusate Sodium 100 mg DAILYPRN PRN PO 10/26/25 15:15 10/27/25 22:03 100 MG laboratory and microbiology Laboratory Tests 10/26/25 10:02 Test 10/26/25 10:02 Range/Units Serum Glucose 123 H 74-106 mg/dL Problem List SS COMPLEX OF CHEST PAIN TROPONIN NEGATIVE ECG NO ACUTE CHANGES PMH ; ORGANIC HD HTN CAD S/P PTCA STENT 2021 HX OF [place] SSS S/P DUAL PPI GERD BPH HX OF CVA NOW BED BOUND PT BEING BED BOUND R/O PE LE VENOUS DOPPLER Assessment/Plan ECHO EF >55% CTA LUNG LE VENOUS DOPPLER Dietary Evaluation Review Comments: Nutrition Recommendation: 1) Satya 1 pk BID, MVI w/ minerals 1 tab daily, VitC 500mg BID, Zinc sulfate 220mg BID x 10 days 2) Consider Regular diet 3) Ensure High Protein 240ml TID 4) Monitor PO intake, lab values, weight trend, and I/O Expected Outcomes/Goals: Wound to improve FU 3-5 days Plan discussed with: Patient, Spouse ALOK PAZ MD Oct 30, 2025 10:05
--- NOTE | 2025-10-30 10:06 | DVHPN2 ---
Progress Note - Dictate Date Seen: Oct 30, 2025 Medical Necessity Reason Pt with a Central, PICC or Fol: No Subjective PT WITH SS COMPLEX OF CHEST PAIN TROPONIN NEGATIVE ECG NO ACUTE CHANGES PMH ; ORGANIC HD HTN CAD S/P PTCA STENT 2021 HX OF [place] SSS S/P DUAL PPI GERD BPH HX OF CVA NOW BED BOUND vital signs Vital Sign Date Time Temp Pulse Resp B/P (MAP) Pulse Ox O2 Delivery O2 Flow Rate FiO2 10/30/25 09:00 96.8 72 16 107/65 (79) 97 96.8 10/29/25 20:00 Room Air* 0 21 Total Intake and Output 10/29/25 10/29/25 10/30/25 15:00 23:00 07:00 Intake Total 1530 ml 200 ml Output Total 800 ml 350 ml Balance 730 ml -150 ml medications Current Medications Medications Dose Ordered Sig/Juan Route Start Time Stop Time Status Last Admin Dose Admin Acetaminophen/ Hydrocodone Bitart 1 tab Q4HP PRN PO 10/25/25 22:00 10/30/25 04:54 1 TAB Enoxaparin Sodium 40 mg DAILY SC 10/26/25 10:00 10/30/25 09:50 40 MG Nitroglycerin 0.4 mg Q5MINP PRN SL 10/25/25 22:00 Morphine Sulfate 2 mg Q30M PRN IV 10/25/25 22:00 Polyethylene Glycol 17 gm DAILY PO 10/26/25 10:00 10/29/25 10:22 17 GM Pantoprazole Sodium 40 mg DAILY@0600 PO 10/26/25 06:00 10/30/25 06:56 40 MG Clopidogrel Bisulfate 75 mg DAILY PO 10/26/25 10:00 10/30/25 09:50 75 MG Atorvastatin Calcium 40 mg HS PO 10/26/25 22:00 10/29/25 22:52 40 MG Finasteride 5 mg DAILY PO 10/26/25 10:00 10/30/25 09:50 5 MG Pregabalin 50 mg TID PO 10/26/25 06:00 10/30/25 06:56 50 MG Docusate Sodium 100 mg DAILYPRN PRN PO 10/26/25 15:15 10/27/25 22:03 100 MG laboratory and microbiology Laboratory Tests 10/26/25 10:02 Test 10/26/25 10:02 Range/Units Serum Glucose 123 H 74-106 mg/dL Problem List SS COMPLEX OF CHEST PAIN TROPONIN NEGATIVE ECG NO ACUTE CHANGES PMH ; ORGANIC HD HTN CAD S/P PTCA STENT 2021 HX OF [place] SSS S/P DUAL PPI GERD BPH HX OF CVA NOW BED BOUND PT BEING BED BOUND R/O PE LE VENOUS DOPPLER Assessment/Plan ECHO EF >55% CTA LUNG LE VENOUS DOPPLER D DIMER Dietary Evaluation Review Comments: Nutrition Recommendation: 1) Satya 1 pk BID, MVI w/ minerals 1 tab daily, VitC 500mg BID, Zinc sulfate 220mg BID x 10 days 2) Consider Regular diet 3) Ensure High Protein 240ml TID 4) Monitor PO intake, lab values, weight trend, and I/O Expected Outcomes/Goals: Wound to improve FU 3-5 days Plan discussed with: Patient, Spouse ALOK PAZ MD Oct 30, 2025 10:06
--- NOTE | 2025-10-30 11:19 | DVH ---
Bilateral lower extremity venous duplex Clinical History: CHEST PAIN/ BEDRIDDEN Comparison: None Technique: Duplex Doppler evaluation of the deep venous systems of both lower extremities from the common femoral veins to the popliteal veins including color Doppler and spectral/pulsed waveform analysis was performed. Findings: RIGHT SIDE: Lymph nodes in the right lower extremity The common femoral vein demonstrates appropriate compressibility and waveform variability. There is compressibility/patency of the great saphenous vein at the proximal thigh. The femoral vein demonstrates appropriate compressibility and waveform variability. The deep femoral vein demonstrates appropriate compressibility and waveform variability. The popliteal vein demonstrates appropriate compressibility and waveform variability. There is normal compressibility at the tibioperoneal trunk. LEFT SIDE: The common femoral vein demonstrates appropriate compressibility and waveform variability. There is compressibility/patency of the great saphenous vein at the proximal thigh. The femoral vein demonstrates appropriate compressibility and waveform variability. The deep femoral vein demonstrates appropriate compressibility and waveform variability. The popliteal vein demonstrates appropriate compressibility and waveform variability. There is normal compressibility at the tibioperoneal trunk. Impression: 1. No right or left femoropopliteal venous thrombosis.
--- NOTE | 2025-10-30 12:09 | ECG ---
[facility] Test Date: 2025-10-30 Test Time: 04:16:59 Pat Name: PANCHO RODRIGUEZ Department: Room: 0292T B Gender: M Certified Medication Technician: IM : 1945 Requested By: LYLY OCHOA Order Number: [id number] Reading MD: Angelo Jeff Measurements Intervals [place] Rate: 70 P: 4 TX: 262 QRS: 268 QRSD: 167 T: 75 QT: 493 QTc: 533 Interpretive Statements Atrial-sensed ventricular-paced rhythm No further analysis attempted due to paced rhythm Electronically Signed On 11-01-2025 9:50:49 PST by Angelo Jeff Please click the below link to view image of tracing.
--- NOTE | 2025-10-30 13:29 | DVHPN2 ---
Reviewed: Care Plan, H&P, Labs Changes from previous H/P or p: No Changes General: Per HPI Eyes: No Pain, No Vision change, No Conjunctivae inflammation, No Eyelid inflammation, No Other, No Redness ENT: No Ear pain, No Ear discharge, No Nose pain, No Nose discharge, No Nose congestion, No Mouth pain, No Mouth swelling, No Throat pain, No Throat swelling; Other (Hearing difficulty) Cardiovascular: Chest Pain, Palpitations; No Orthopnea, No Paroxysmal Noc. Dyspnea, No Edema, No Lt Headedness, No Other Respiratory: No Cough, No Dry, No Shortness of breath, No SOB with excertion, No Wheezing, No Hemoptysis, No Pleuritic Pain, No Sputum, No Other Gastrointestinal: No Nausea, No Vomiting, No Abdominal Pain, No Diarrhea, No Constipation, No Melena, No Hematochezia, No Other Genitourinary: No Dysuria, No Frequency, No Incontinence, No Hematuria, No Retention, No Other Musculoskeletal: No other, No neck pain, No shoulder pain, No arm pain; back pain; No hand pain, No leg pain, No foot pain Skin: No Rash, No Lesions, No Jaundice, No Bruising, No Other Objective Vitals Vital Signs Date Time Temp Pulse Resp B/P (MAP) Pulse Ox O2 Delivery O2 Flow Rate FiO2 10/30/25 09:00 96.8 72 16 107/65 (79) 97 96.8 10/30/25 08:00 Room Air* 0 21 Intake/Output Intake and Output 10/30/25 07:00 Intake Total 1730 ml Output Total 1150 ml Balance 580 ml Intake Oral 1730 ml Output Urine Total 1150 ml # Bowel Movements 3 Medications Current Medications Medications Dose Ordered Sig/Juan Route Start Time Stop Time Status Last Admin Dose Admin Acetaminophen/ Hydrocodone Bitart 1 tab Q4HP PRN PO 10/25/25 22:00 10/30/25 04:54 1 TAB Enoxaparin Sodium 40 mg DAILY SC 10/26/25 10:00 10/30/25 09:50 40 MG Nitroglycerin 0.4 mg Q5MINP PRN SL 10/25/25 22:00 Morphine Sulfate 2 mg Q30M PRN IV 10/25/25 22:00 Polyethylene Glycol 17 gm DAILY PO 10/26/25 10:00 10/29/25 10:22 17 GM Pantoprazole Sodium 40 mg DAILY@0600 PO 10/26/25 06:00 10/30/25 06:56 40 MG Clopidogrel Bisulfate 75 mg DAILY PO 10/26/25 10:00 10/30/25 09:50 75 MG Atorvastatin Calcium 40 mg HS PO 10/26/25 22:00 10/29/25 22:52 40 MG Finasteride 5 mg DAILY PO 10/26/25 10:00 10/30/25 09:50 5 MG Pregabalin 50 mg TID PO 10/26/25 06:00 10/30/25 06:56 50 MG Docusate Sodium 100 mg DAILYPRN PRN PO 10/26/25 15:15 10/27/25 22:03 100 MG Laboratory Results Laboratory Tests 10/26/25 10:02 Urinalysis Test 10/26/25 00:06 Urine Color Yellow (Yellow) Urine Clarity Clear (Clear) Urine pH 7.0 (5.0-9.0) Urine Specific [place] 1.031 (1.001-1.035) Urine Protein Negative (Negative) Urine Ketones 1+ (Negative) H Urine Blood Negative /uL (Negative) Urine Nitrite Negative (Negative) Urine Bilirubin Negative (Negative) Urine Urobilinogen 2 mg/dL (Negative) H Urine Leukocyte Esterase Negative /uL (Negative) Urine RBC 2 /hpf (0 - 3) Urine Microscopic WBC 1 /HPF (0-3) Urine Squamous Epithelial Cells None seen /hpf (<5) Urine Bacteria None seen /hpf (None Seen) Urine Mucus Few (None Seen) Urine Glucose Normal mg/dL (Normal) Assessment/Plan Assessment/Plan 79-year-old male with a known history of CAD status post PCI with a one stent, hypertension, status post pacemaker, dyslipidemia, history of TIA initially presented to the hospital with the chest pain found to have 1. Chest pain ruled out [place] 2. CAD status post PCI 3. Status post pacemaker 4. Hypertension 5. Dyslipidemia 6. TIA follow up Cardiology recommendations. -physical therapy evaluation and treatment. Plan discussed with: Patient Date of Service: Oct 28, 2025 Billing Provider: JEANNE TERRAZAS DO Common Visit Codes: [id number] INP/OBS CARE(HIGH) JEANNE TERRAZAS DO Oct 30, 2025 13:29
--- NOTE | 2025-10-30 13:30 | DVHPN2 ---
Reviewed: Care Plan, H&P, Labs Changes from previous H/P or p: No Changes General: Per HPI Eyes: No Pain, No Vision change, No Conjunctivae inflammation, No Eyelid inflammation, No Other, No Redness ENT: No Ear pain, No Ear discharge, No Nose pain, No Nose discharge, No Nose congestion, No Mouth pain, No Mouth swelling, No Throat pain, No Throat swelling; Other (Hearing difficulty) Cardiovascular: Chest Pain, Palpitations; No Orthopnea, No Paroxysmal Noc. Dyspnea, No Edema, No Lt Headedness, No Other Respiratory: No Cough, No Dry, No Shortness of breath, No SOB with excertion, No Wheezing, No Hemoptysis, No Pleuritic Pain, No Sputum, No Other Gastrointestinal: No Nausea, No Vomiting, No Abdominal Pain, No Diarrhea, No Constipation, No Melena, No Hematochezia, No Other Genitourinary: No Dysuria, No Frequency, No Incontinence, No Hematuria, No Retention, No Other Musculoskeletal: No other, No neck pain, No shoulder pain, No arm pain; back pain; No hand pain, No leg pain, No foot pain Skin: No Rash, No Lesions, No Jaundice, No Bruising, No Other Objective Vitals Vital Signs Date Time Temp Pulse Resp B/P (MAP) Pulse Ox O2 Delivery O2 Flow Rate FiO2 10/30/25 09:00 96.8 72 16 107/65 (79) 97 96.8 10/30/25 08:00 Room Air* 0 21 Intake/Output Intake and Output 10/30/25 07:00 Intake Total 1730 ml Output Total 1150 ml Balance 580 ml Intake Oral 1730 ml Output Urine Total 1150 ml # Bowel Movements 3 Medications Current Medications Medications Dose Ordered Sig/Juan Route Start Time Stop Time Status Last Admin Dose Admin Acetaminophen/ Hydrocodone Bitart 1 tab Q4HP PRN PO 10/25/25 22:00 10/30/25 04:54 1 TAB Enoxaparin Sodium 40 mg DAILY SC 10/26/25 10:00 10/30/25 09:50 40 MG Nitroglycerin 0.4 mg Q5MINP PRN SL 10/25/25 22:00 Morphine Sulfate 2 mg Q30M PRN IV 10/25/25 22:00 Polyethylene Glycol 17 gm DAILY PO 10/26/25 10:00 10/29/25 10:22 17 GM Pantoprazole Sodium 40 mg DAILY@0600 PO 10/26/25 06:00 10/30/25 06:56 40 MG Clopidogrel Bisulfate 75 mg DAILY PO 10/26/25 10:00 10/30/25 09:50 75 MG Atorvastatin Calcium 40 mg HS PO 10/26/25 22:00 10/29/25 22:52 40 MG Finasteride 5 mg DAILY PO 10/26/25 10:00 10/30/25 09:50 5 MG Pregabalin 50 mg TID PO 10/26/25 06:00 10/30/25 06:56 50 MG Docusate Sodium 100 mg DAILYPRN PRN PO 10/26/25 15:15 10/27/25 22:03 100 MG Laboratory Results Laboratory Tests 10/26/25 10:02 Urinalysis Test 10/26/25 00:06 Urine Color Yellow (Yellow) Urine Clarity Clear (Clear) Urine pH 7.0 (5.0-9.0) Urine Specific [place] 1.031 (1.001-1.035) Urine Protein Negative (Negative) Urine Ketones 1+ (Negative) H Urine Blood Negative /uL (Negative) Urine Nitrite Negative (Negative) Urine Bilirubin Negative (Negative) Urine Urobilinogen 2 mg/dL (Negative) H Urine Leukocyte Esterase Negative /uL (Negative) Urine RBC 2 /hpf (0 - 3) Urine Microscopic WBC 1 /HPF (0-3) Urine Squamous Epithelial Cells None seen /hpf (<5) Urine Bacteria None seen /hpf (None Seen) Urine Mucus Few (None Seen) Urine Glucose Normal mg/dL (Normal) Assessment/Plan Assessment/Plan 79-year-old male with a known history of CAD status post PCI with a one stent, hypertension, status post pacemaker, dyslipidemia, history of TIA initially presented to the hospital with the chest pain found to have 1. Chest pain ruled out [place] 2. CAD status post PCI 3. Status post pacemaker 4. Hypertension 5. Dyslipidemia 6. TIA follow up Cardiology recommendations. -physical therapy evaluation and treatment. Plan discussed with: Patient Date of Service: Oct 29, 2025 Billing Provider: JEANNE TERRAZAS DO Common Visit Codes: [id number] INP/OBS CARE(HIGH) JEANNE TERRAZAS DO Oct 30, 2025 13:30
[2025-10-31] VITALS (8 sets, daily range): BP systolic 96–125; BP diastolic 50–78; PULSE 71–90; RESP 16–19; TEMP 96.1–99.1; O2SAT 96–99
--- NOTE | 2025-10-31 | DVHPN2 ---
Reviewed: Care Plan, H&P, Labs Changes from previous H/P or p: No Changes General: Per HPI Eyes: No Pain, No Vision change, No Conjunctivae inflammation, No Eyelid inflammation, No Other, No Redness ENT: No Ear pain, No Ear discharge, No Nose pain, No Nose discharge, No Nose congestion, No Mouth pain, No Mouth swelling, No Throat pain, No Throat swelling; Other (Hearing difficulty) Cardiovascular: Chest Pain, Palpitations; No Orthopnea, No Paroxysmal Noc. Dyspnea, No Edema, No Lt Headedness, No Other Respiratory: No Cough, No Dry, No Shortness of breath, No SOB with excertion, No Wheezing, No Hemoptysis, No Pleuritic Pain, No Sputum, No Other Gastrointestinal: No Nausea, No Vomiting, No Abdominal Pain, No Diarrhea, No Constipation, No Melena, No Hematochezia, No Other Genitourinary: No Dysuria, No Frequency, No Incontinence, No Hematuria, No Retention, No Other Musculoskeletal: No other, No neck pain, No shoulder pain, No arm pain; back pain; No hand pain, No leg pain, No foot pain Skin: No Rash, No Lesions, No Jaundice, No Bruising, No Other Objective Vitals Vital Signs Date Time Temp Pulse Resp B/P (MAP) Pulse Ox O2 Delivery O2 Flow Rate FiO2 10/30/25 21:00 97.7 85 19 111/62 (78) 96 97.7 10/30/25 08:00 Room Air* 0 21 Intake/Output Intake and Output 10/31/25 07:00 Intake Total 700 ml Output Total 800 ml Balance -100 ml Intake Oral 700 ml Output Urine Total 800 ml # Bowel Movements 2 Medications Current Medications Medications Dose Ordered Sig/Juan Route Start Time Stop Time Status Last Admin Dose Admin Acetaminophen/ Hydrocodone Bitart 1 tab Q4HP PRN PO 10/25/25 22:00 10/30/25 04:54 1 TAB Enoxaparin Sodium 40 mg DAILY SC 10/26/25 10:00 10/30/25 09:50 40 MG Nitroglycerin 0.4 mg Q5MINP PRN SL 10/25/25 22:00 Morphine Sulfate 2 mg Q30M PRN IV 10/25/25 22:00 Polyethylene Glycol 17 gm DAILY PO 10/26/25 10:00 10/29/25 10:22 17 GM Pantoprazole Sodium 40 mg DAILY@0600 PO 10/26/25 06:00 10/30/25 06:56 40 MG Clopidogrel Bisulfate 75 mg DAILY PO 10/26/25 10:00 10/30/25 09:50 75 MG Atorvastatin Calcium 40 mg HS PO 10/26/25 22:00 10/30/25 22:08 40 MG Finasteride 5 mg DAILY PO 10/26/25 10:00 10/30/25 09:50 5 MG Pregabalin 50 mg TID PO 10/26/25 06:00 10/30/25 22:08 50 MG Docusate Sodium 100 mg DAILYPRN PRN PO 10/26/25 15:15 10/27/25 22:03 100 MG Laboratory Results Laboratory Tests 10/26/25 10:02 Urinalysis Test 10/26/25 00:06 Urine Color Yellow (Yellow) Urine Clarity Clear (Clear) Urine pH 7.0 (5.0-9.0) Urine Specific [place] 1.031 (1.001-1.035) Urine Protein Negative (Negative) Urine Ketones 1+ (Negative) H Urine Blood Negative /uL (Negative) Urine Nitrite Negative (Negative) Urine Bilirubin Negative (Negative) Urine Urobilinogen 2 mg/dL (Negative) H Urine Leukocyte Esterase Negative /uL (Negative) Urine RBC 2 /hpf (0 - 3) Urine Microscopic WBC 1 /HPF (0-3) Urine Squamous Epithelial Cells None seen /hpf (<5) Urine Bacteria None seen /hpf (None Seen) Urine Mucus Few (None Seen) Urine Glucose Normal mg/dL (Normal) Assessment/Plan Assessment/Plan 79-year-old male with a known history of CAD status post PCI with a one stent, hypertension, status post pacemaker, dyslipidemia, history of TIA initially presented to the hospital with the chest pain found to have 1. Chest pain ruled out [place] 2. CAD status post PCI 3. Status post pacemaker 4. Hypertension 5. Dyslipidemia 6. TIA follow up Cardiology recommendations. -physical therapy evaluation and treatment. Plan discussed with: Patient Date of Service: Oct 30, 2025 Billing Provider: JEANNE TERRAZAS DO Common Visit Codes: [id number] INP/OBS CARE(HIGH) JEANNE TERRAZAS DO Oct 31, 2025 00:00
[2025-10-31 08:28] LABS: Hematocrit 35.9 % (41.0-53.0); Hemoglobin 12.3 g/dL (13.5-17.5); Mean Corpuscular Hemoglobin 31.9 pg (28.0-32.0); Mean Corpuscular Volume 93.0 fL (80.0-100.0); Nucleated Red Blood Cells % 0.0 %
[2025-10-31 08:46] LABS: Alanine Aminotransferase 11 U/L (7-40); Alkaline Phosphatase 55 U/L (46-116); Anion Gap 9 (5-15); BUN/Creatinine Ratio 25.8 (10.0-20.0); Blood Urea Nitrogen 16 mg/dL (9-23); Carbon Dioxide 26 mmol/L (20-31); Sodium 142 mmol/L (136-145)
[2025-10-31 08:47] LABS: Albumin 2.7 g/dL (3.2-4.8); Bilirubin, Total 0.6 mg/dL (0.2-1.0); Calcium 8.4 mg/dL (8.7-10.4); Chloride 107 mmol/L (98-107); Glucose 111 mg/dL (74-106); Potassium 3.4 mmol/L (3.5-5.1); Total Protein 5.2 g/dL (5.7-8.2)
--- NOTE | 2025-10-31 13:44 | DVHPN2 ---
Reviewed: Care Plan, H&P, Labs Changes from previous H/P or p: No Changes General: Per HPI Eyes: No Pain, No Vision change, No Conjunctivae inflammation, No Eyelid inflammation, No Other, No Redness ENT: No Ear pain, No Ear discharge, No Nose pain, No Nose discharge, No Nose congestion, No Mouth pain, No Mouth swelling, No Throat pain, No Throat swelling; Other (Hearing difficulty) Cardiovascular: Chest Pain, Palpitations; No Orthopnea, No Paroxysmal Noc. Dyspnea, No Edema, No Lt Headedness, No Other Respiratory: No Cough, No Dry, No Shortness of breath, No SOB with excertion, No Wheezing, No Hemoptysis, No Pleuritic Pain, No Sputum, No Other Gastrointestinal: No Nausea, No Vomiting, No Abdominal Pain, No Diarrhea, No Constipation, No Melena, No Hematochezia, No Other Genitourinary: No Dysuria, No Frequency, No Incontinence, No Hematuria, No Retention, No Other Musculoskeletal: No other, No neck pain, No shoulder pain, No arm pain; back pain; No hand pain, No leg pain, No foot pain Skin: No Rash, No Lesions, No Jaundice, No Bruising, No Other Objective Vitals Vital Signs Date Time Temp Pulse Resp B/P (MAP) Pulse Ox O2 Delivery O2 Flow Rate FiO2 10/31/25 08:32 97.1 75 16 96/50 (65) 99 97.1 10/31/25 08:00 Nasal Cannula* 5 40 Intake/Output Intake and Output 10/31/25 07:00 Intake Total 1300 ml Output Total 2600 ml Balance -1300 ml Intake Oral 1300 ml Output Urine Total 2600 ml # Bowel Movements 4 Medications Current Medications Medications Dose Ordered Sig/Juan Route Start Time Stop Time Status Last Admin Dose Admin Acetaminophen/ Hydrocodone Bitart 1 tab Q4HP PRN PO 10/25/25 22:00 10/30/25 04:54 1 TAB Enoxaparin Sodium 40 mg DAILY SC 10/26/25 10:00 10/31/25 10:22 40 MG Nitroglycerin 0.4 mg Q5MINP PRN SL 10/25/25 22:00 Morphine Sulfate 2 mg Q30M PRN IV 10/25/25 22:00 Polyethylene Glycol 17 gm DAILY PO 10/26/25 10:00 10/29/25 10:22 17 GM Pantoprazole Sodium 40 mg DAILY@0600 PO 10/26/25 06:00 10/31/25 05:32 40 MG Clopidogrel Bisulfate 75 mg DAILY PO 10/26/25 10:00 10/31/25 10:22 75 MG Atorvastatin Calcium 40 mg HS PO 10/26/25 22:00 10/30/25 22:08 40 MG Finasteride 5 mg DAILY PO 10/26/25 10:00 10/31/25 10:22 5 MG Pregabalin 50 mg TID PO 10/26/25 06:00 10/31/25 05:32 50 MG Docusate Sodium 100 mg DAILYPRN PRN PO 10/26/25 15:15 10/27/25 22:03 100 MG Laboratory Results Laboratory Tests 10/31/25 07:56 Chemistry Test 10/31/25 07:56 Albumin 2.7 g/dL (3.2-4.8) L Calcium Level 8.4 mg/dL (8.7-10.4) L Total Protein 5.2 g/dL (5.7-8.2) L LFT Test 10/31/25 07:56 Alanine Aminotransferase (ALT) 11 U/L (7-40) Alkaline Phosphatase 55 U/L (46-116) Aspartate Amino Transferase (AST) 20 U/L (13-40) Total Bilirubin 0.6 mg/dL (0.2-1.0) Urinalysis Test 10/26/25 00:06 Urine Color Yellow (Yellow) Urine Clarity Clear (Clear) Urine pH 7.0 (5.0-9.0) Urine Specific [place] 1.031 (1.001-1.035) Urine Protein Negative (Negative) Urine Ketones 1+ (Negative) H Urine Blood Negative /uL (Negative) Urine Nitrite Negative (Negative) Urine Bilirubin Negative (Negative) Urine Urobilinogen 2 mg/dL (Negative) H Urine Leukocyte Esterase Negative /uL (Negative) Urine RBC 2 /hpf (0 - 3) Urine Microscopic WBC 1 /HPF (0-3) Urine Squamous Epithelial Cells None seen /hpf (<5) Urine Bacteria None seen /hpf (None Seen) Urine Mucus Few (None Seen) Urine Glucose Normal mg/dL (Normal) Labs and/or images reviewed: Labs reviewed by me, Image(s) reviewed by me Assessment/Plan Assessment/Plan Covering for Chest pain rule out [place] troponin negative, EKG normal, cardiology consult by Dr. Cardona appreciated ejection fraction 55 percent Coronary artery disease status post PCI stents 2021 History of sick Sinus syndrome Status post dual-chamber pacemaker Hypertension Hypercholesterolemia History of CVA Bed-bound BPH GERD DVT ruled out Time Spent 68 minutes Advanced care planning time 20 minutes Patient is full code Plan discussed with: Patient Date of Service: Oct 31, 2025 Billing Provider: JULIA LATIF MD Common Visit Codes: [id number] CARE 30-74 MIN JULIA LATIF MD Oct 31, 2025 13:44
--- NOTE | 2025-10-31 14:01 | DVHPN2 ---
Progress Note - Dictate Date Seen: Oct 31, 2025 Medical Necessity Reason Pt with a Central, PICC or Fol: No Subjective PT WITH SS COMPLEX OF CHEST PAIN TROPONIN NEGATIVE ECG NO ACUTE CHANGES PMH ; ORGANIC HD HTN CAD S/P PTCA STENT 2021 HX OF [place] SSS S/P DUAL PPI GERD BPH HX OF CVA NOW BED BOUND vital signs Vital Sign Date Time Temp Pulse Resp B/P (MAP) Pulse Ox O2 Delivery O2 Flow Rate FiO2 10/31/25 08:32 97.1 75 16 96/50 (65) 99 97.1 10/31/25 08:00 Nasal Cannula* 5 40 Total Intake and Output 10/30/25 10/30/25 10/31/25 15:00 23:00 07:00 Intake Total 700 ml 600 ml Output Total 800 ml 1800 ml Balance -100 ml -1200 ml medications Current Medications Medications Dose Ordered Sig/Juan Route Start Time Stop Time Status Last Admin Dose Admin Acetaminophen/ Hydrocodone Bitart 1 tab Q4HP PRN PO 10/25/25 22:00 10/30/25 04:54 1 TAB Enoxaparin Sodium 40 mg DAILY SC 10/26/25 10:00 10/31/25 10:22 40 MG Nitroglycerin 0.4 mg Q5MINP PRN SL 10/25/25 22:00 Morphine Sulfate 2 mg Q30M PRN IV 10/25/25 22:00 Polyethylene Glycol 17 gm DAILY PO 10/26/25 10:00 10/29/25 10:22 17 GM Pantoprazole Sodium 40 mg DAILY@0600 PO 10/26/25 06:00 10/31/25 05:32 40 MG Clopidogrel Bisulfate 75 mg DAILY PO 10/26/25 10:00 10/31/25 10:22 75 MG Atorvastatin Calcium 40 mg HS PO 10/26/25 22:00 10/30/25 22:08 40 MG Finasteride 5 mg DAILY PO 10/26/25 10:00 10/31/25 10:22 5 MG Pregabalin 50 mg TID PO 10/26/25 06:00 10/31/25 05:32 50 MG Docusate Sodium 100 mg DAILYPRN PRN PO 10/26/25 15:15 10/27/25 22:03 100 MG laboratory and microbiology Laboratory Tests 10/31/25 07:56 Test 12/1/25 07:56 Range/Units Serum Glucose 111 H 74-106 mg/dL Problem List SS COMPLEX OF CHEST PAIN TROPONIN NEGATIVE ECG NO ACUTE CHANGES PMH ; ORGANIC HD HTN CAD S/P PTCA STENT 2021 HX OF [place] SSS S/P DUAL PPI GERD BPH HX OF CVA NOW BED BOUND PT BEING BED BOUND R/O PE LE VENOUS DOPPLER Assessment/Plan ECHO EF >55% CTA LUNG LE VENOUS DOPPLER NEGATIVE FOR DVT D DIMER PENDING Dietary Evaluation Review Comments: Nutrition Recommendation: 1) Satya 1 pk BID, MVI w/ minerals 1 tab daily, VitC 500mg BID, Zinc sulfate 220mg BID x 10 days 2) Consider Regular diet 3) Ensure High Protein 240ml TID 4) Monitor PO intake, lab values, weight trend, and I/O Expected Outcomes/Goals: Wound to improve FU 3-5 days Plan discussed with: Patient, Spouse ALOK PAZ MD Oct 31, 2025 14:01
--- NOTE | 2025-10-31 16:21 | DVH ---
Indication: PE Technique: CT axial images of the chest are obtained with intravenous contrast per CT angiogram protocol. Coronal and sagittal reformats were obtained. Radiation Dose Information: CTDI volume is 29.6 mGy. Dose-length product is 644.81 mGy*cm Comparison: CT CT ANGIO CHEST CONTRAST on DOS: 03/07/23, CTH on DOS: 11/26/22 FINDINGS: No filling defects within the main left and right pulmonary arteries. The segmental and subsegmental branches are suboptimally opacified/characterize. Trachea patent. No pneumothorax. Bilateral atelectasis. Small bilateral pleural effusions. Heart normal in size. Coronary artery calcification disease. Aortic atherosclerotic disease. Right thyroid nodule measuring 11 mm. No supraclavicular, axillary lymphadenopathy. Gastric distention. There is inflammatory stranding within the upper abdominal mesentery adjacent to the stomach. Severe degenerate changes right shoulder. IMPRESSION: No evidence for Large pulmonary embolism. Small bilateral pleural effusions. Gastric distention. There is stranding within the upper abdominal mesentery adjacent to the stomach. Recommend dedicated CT abdomen pelvis with contrast to evaluate. Coronary artery, atherosclerotic calcification disease. 11 mm right thyroid nodule which can be further evaluated with thyroid ultrasound in the nonemergent setting. Other findings as described.
[2025-11-01] VITALS (8 sets, daily range): BP systolic 96–109; BP diastolic 52–61; PULSE 68–86; RESP 16–19; TEMP 97–98.5; O2SAT 97–99
[2025-11-01] MEDS: IOHEXOL 350 MG/ML 100ML IJ ONE (07:39)
--- NOTE | 2025-11-01 13:06 | DVHPN2 ---
Reviewed: Care Plan, H&P, Labs Changes from previous H/P or p: No Changes General: Per HPI Eyes: No Pain, No Vision change, No Conjunctivae inflammation, No Eyelid inflammation, No Other, No Redness ENT: No Ear pain, No Ear discharge, No Nose pain, No Nose discharge, No Nose congestion, No Mouth pain, No Mouth swelling, No Throat pain, No Throat swelling; Other (Hearing difficulty) Cardiovascular: Chest Pain, Palpitations; No Orthopnea, No Paroxysmal Noc. Dyspnea, No Edema, No Lt Headedness, No Other Respiratory: No Cough, No Dry, No Shortness of breath, No SOB with excertion, No Wheezing, No Hemoptysis, No Pleuritic Pain, No Sputum, No Other Gastrointestinal: No Nausea, No Vomiting, No Abdominal Pain, No Diarrhea, No Constipation, No Melena, No Hematochezia, No Other Genitourinary: No Dysuria, No Frequency, No Incontinence, No Hematuria, No Retention, No Other Musculoskeletal: No other, No neck pain, No shoulder pain, No arm pain; back pain; No hand pain, No leg pain, No foot pain Skin: No Rash, No Lesions, No Jaundice, No Bruising, No Other Objective Vitals Vital Signs Date Time Temp Pulse Resp B/P (MAP) Pulse Ox O2 Delivery O2 Flow Rate FiO2 11/01/25 09:00 97.8 78 16 96/52 (67) 98 97.8 10/31/25 20:00 Nasal Cannula* 2 28 Intake/Output Intake and Output 11/01/25 07:00 Intake Total 1625 ml Output Total 1400 ml Balance 225 ml Intake Oral 1625 ml Output Urine Total 1400 ml # Bowel Movements 3 Medications Current Medications Medications Dose Ordered Sig/Juan Route Start Time Stop Time Status Last Admin Dose Admin Acetaminophen/ Hydrocodone Bitart 1 tab Q4HP PRN PO 10/25/25 22:00 10/30/25 04:54 1 TAB Enoxaparin Sodium 40 mg DAILY SC 10/26/25 10:00 11/01/25 10:45 40 MG Nitroglycerin 0.4 mg Q5MINP PRN SL 10/25/25 22:00 Morphine Sulfate 2 mg Q30M PRN IV 10/25/25 22:00 Polyethylene Glycol 17 gm DAILY PO 10/26/25 10:00 11/01/25 10:45 17 GM Pantoprazole Sodium 40 mg DAILY@0600 PO 10/26/25 06:00 11/01/25 05:40 40 MG Clopidogrel Bisulfate 75 mg DAILY PO 10/26/25 10:00 11/01/25 10:45 75 MG Atorvastatin Calcium 40 mg HS PO 10/26/25 22:00 10/31/25 21:19 40 MG Finasteride 5 mg DAILY PO 10/26/25 10:00 11/01/25 10:44 5 MG Pregabalin 50 mg TID PO 10/26/25 06:00 11/01/25 05:40 50 MG Docusate Sodium 100 mg DAILYPRN PRN PO 10/26/25 15:15 10/27/25 22:03 100 MG Laboratory Results Laboratory Tests 10/31/25 07:56 Coagulation Test 10/31/25 14:35 D-Dimer, Quantitative 0.93 mg/L FEU (0.0-0.49) H Urinalysis Test 10/26/25 00:06 Urine Color Yellow (Yellow) Urine Clarity Clear (Clear) Urine pH 7.0 (5.0-9.0) Urine Specific [place] 1.031 (1.001-1.035) Urine Protein Negative (Negative) Urine Ketones 1+ (Negative) H Urine Blood Negative /uL (Negative) Urine Nitrite Negative (Negative) Urine Bilirubin Negative (Negative) Urine Urobilinogen 2 mg/dL (Negative) H Urine Leukocyte Esterase Negative /uL (Negative) Urine RBC 2 /hpf (0 - 3) Urine Microscopic WBC 1 /HPF (0-3) Urine Squamous Epithelial Cells None seen /hpf (<5) Urine Bacteria None seen /hpf (None Seen) Urine Mucus Few (None Seen) Urine Glucose Normal mg/dL (Normal) Labs and/or images reviewed: Labs reviewed by me, Image(s) reviewed by me Assessment/Plan Assessment/Plan Covering for Chest pain rule out [place] troponin negative, EKG normal, cardiology consult by Dr. Cardona appreciated ejection fraction 55 % Coronary artery disease status post PCI stents 2021 History of sick Sinus syndrome Status post dual-chamber pacemaker Hypertension Hypercholesterolemia History of CVA Bed-bound x 2 yrs BPH GERD Chronic Constipation: Colace lactulose D-dimer mildly elevated 0.80 DVT ruled out Pulmonary embolism ruled out Time Spent 68 minutes Advanced care planning time 20 minutes Patient is full code Plan discussed with: Patient Date of Service: Nov 01, 2025 Billing Provider: JULIA LATIF MD Common Visit Codes: [id number] INP/OBS CARE(HIGH) JULIA LATIF MD Nov 01, 2025 13:06
[2025-11-01] MEDS: ACETAMINOPHEN 325 MG TAB PO ONE (13:35)
[2025-11-02] VITALS (8 sets, daily range): BP systolic 104–115; BP diastolic 53–69; PULSE 66–88; RESP 16–19; TEMP 97–98; O2SAT 97–98
--- NOTE | 2025-11-02 15:03 | DVHPN2 ---
Reviewed: Care Plan, H&P, Labs Changes from previous H/P or p: No Changes General: Per HPI Eyes: No Pain, No Vision change, No Conjunctivae inflammation, No Eyelid inflammation, No Other, No Redness ENT: No Ear pain, No Ear discharge, No Nose pain, No Nose discharge, No Nose congestion, No Mouth pain, No Mouth swelling, No Throat pain, No Throat swelling; Other (Hearing difficulty) Cardiovascular: Chest Pain, Palpitations; No Orthopnea, No Paroxysmal Noc. Dyspnea, No Edema, No Lt Headedness, No Other Respiratory: No Cough, No Dry, No Shortness of breath, No SOB with excertion, No Wheezing, No Hemoptysis, No Pleuritic Pain, No Sputum, No Other Gastrointestinal: No Nausea, No Vomiting, No Abdominal Pain, No Diarrhea, No Constipation, No Melena, No Hematochezia, No Other Genitourinary: No Dysuria, No Frequency, No Incontinence, No Hematuria, No Retention, No Other Musculoskeletal: No other, No neck pain, No shoulder pain, No arm pain; back pain; No hand pain, No leg pain, No foot pain Skin: No Rash, No Lesions, No Jaundice, No Bruising, No Other Objective Vitals Vital Signs Date Time Temp Pulse Resp B/P (MAP) Pulse Ox O2 Delivery O2 Flow Rate FiO2 11/02/25 08:00 88 11/02/25 08:00 16 98 Room Air* 0 21 11/02/25 05:00 98.0 104/55 (71) 98.0 Intake/Output Intake and Output 11/02/25 07:00 Intake Total 1908 ml Output Total 1400 ml Balance 508 ml Intake Oral 1908 ml Output Urine Total 1400 ml # Bowel Movements 1 Medications Current Medications Medications Dose Ordered Sig/Juan Route Start Time Stop Time Status Last Admin Dose Admin Acetaminophen/ Hydrocodone Bitart 1 tab Q4HP PRN PO 10/25/25 22:00 11/01/25 14:10 1 TAB Enoxaparin Sodium 40 mg DAILY SC 10/26/25 10:00 11/02/25 09:45 40 MG Nitroglycerin 0.4 mg Q5MINP PRN SL 10/25/25 22:00 Morphine Sulfate 2 mg Q30M PRN IV 10/25/25 22:00 Polyethylene Glycol 17 gm DAILY PO 10/26/25 10:00 11/01/25 10:45 17 GM Pantoprazole Sodium 40 mg DAILY@0600 PO 10/26/25 06:00 11/02/25 05:52 40 MG Clopidogrel Bisulfate 75 mg DAILY PO 10/26/25 10:00 11/02/25 09:45 75 MG Atorvastatin Calcium 40 mg HS PO 10/26/25 22:00 11/01/25 21:31 40 MG Finasteride 5 mg DAILY PO 10/26/25 10:00 11/02/25 09:45 5 MG Pregabalin 50 mg TID PO 10/26/25 06:00 11/02/25 14:21 50 MG Docusate Sodium 100 mg DAILYPRN PRN PO 10/26/25 15:15 10/27/25 22:03 100 MG Lactulose 30 ml BIDPRN PRN PO 11/01/25 13:15 Laboratory Results Laboratory Tests 10/31/25 07:56 Urinalysis Test 10/26/25 00:06 Urine Color Yellow (Yellow) Urine Clarity Clear (Clear) Urine pH 7.0 (5.0-9.0) Urine Specific [place] 1.031 (1.001-1.035) Urine Protein Negative (Negative) Urine Ketones 1+ (Negative) H Urine Blood Negative /uL (Negative) Urine Nitrite Negative (Negative) Urine Bilirubin Negative (Negative) Urine Urobilinogen 2 mg/dL (Negative) H Urine Leukocyte Esterase Negative /uL (Negative) Urine RBC 2 /hpf (0 - 3) Urine Microscopic WBC 1 /HPF (0-3) Urine Squamous Epithelial Cells None seen /hpf (<5) Urine Bacteria None seen /hpf (None Seen) Urine Mucus Few (None Seen) Urine Glucose Normal mg/dL (Normal) Labs and/or images reviewed: Labs reviewed by me, Image(s) reviewed by me Assessment/Plan Assessment/Plan Covering for Chest pain rule out [place] troponin negative, EKG normal, cardiology consult by Dr. Cardona appreciated ejection fraction 55 % Coronary artery disease status post PCI stents 2021 History of sick Sinus syndrome Status post dual-chamber pacemaker Hypertension Hypercholesterolemia History of CVA Bed-bound x 2 yrs BPH GERD Chronic Constipation: Colace lactulose D-dimer mildly elevated 0.80 DVT ruled out Pulmonary embolism ruled out Time Spent 68 minutes Advanced care planning time 20 minutes Patient is full code Plan discussed with: Patient Date of Service: Nov 02, 2025 Billing Provider: JULIA LATIF MD Common Visit Codes: [id number] INP/OBS CARE(HIGH) JULIA LATIF MD Nov 02, 2025 15:03
[2025-11-02 15:30] LABS: Urine Amorphous Crystal FEW /hpf (None Seen); Urine Protein, UAD 1+ (Negative); Urine WBC Clumps PRESENT /hpf (None Seen)
--- NOTE | 2025-11-02 16:39 | DVH ---
Indication: Lower abdominal pain Technique: CT axial images of the abdomen and pelvis are obtained without contrast. Coronal and sagittal reformats were obtained. Radiation Dose Information: CTDI volume is 11.48 mGy. Dose-length product is 739.36 mGy*cm Comparison: [facility] on DOS: 10/23/22, [facility] on DOS: 08/06/22, [facility] on DOS: 04/03/22, [facility] on DOS: 08/16/21 FINDINGS: There is limited interpretation of the abdomen and pelvis without administration of intravenous contrast. Tiny bilateral pleural effusions. Bibasilar atelectasis. Adrenal glands, spleen, pancreas unremarkable in shape. Liver unremarkable in shape. Gallbladder contracted. Kidneys demonstrate no hydronephrosis / nephrolithiasis. Gastric distention. Small bowel loops normal in caliber. Rectal wall thickening with surrounding stranding, Presacral edema. Moderate volume stool throughout the colon. Abdominal aortic atherosclerotic disease. Bladder partially decompressed by Garcia catheter. Bladder wall thickening with surrounding stranding. Soft tissue edema/ anasarca. No inguinal lymphadenopathy. [id number] bilateral sacroiliac degenerative joint disease. Moderate to advanced lumbar degenerative disc disease most pronounced at L3-4 and L5-S1. L5 pars defects with 4 mm anterolisthesis L5 on S1 IMPRESSION: Limited evaluation without contrast. Extensive rectal wall thickening with surrounding stranding and presacral edema which could be secondary to proctocolitis. Follow-up to resolution to exclude any type of rectal mass/ neoplastic process. Bladder wall thickening and surrounding stranding likely related to cystitis. Tiny bilateral pleural effusions. Atherosclerotic disease. Moderate volume stool within the colon. Other findings as described.
[2025-11-03] VITALS (8 sets, daily range): BP systolic 92–102; BP diastolic 46–57; PULSE 67–107; RESP 16–18; TEMP 97.2–98.3; O2SAT 95–99
--- NOTE | 2025-11-03 11:20 | DVHPN2 ---
Reviewed: Care Plan, H&P, Labs Changes from previous H/P or p: No Changes General: Per HPI Eyes: No Pain, No Vision change, No Conjunctivae inflammation, No Eyelid inflammation, No Other, No Redness ENT: No Ear pain, No Ear discharge, No Nose pain, No Nose discharge, No Nose congestion, No Mouth pain, No Mouth swelling, No Throat pain, No Throat swelling; Other (Hearing difficulty) Cardiovascular: Chest Pain, Palpitations; No Orthopnea, No Paroxysmal Noc. Dyspnea, No Edema, No Lt Headedness, No Other Respiratory: No Cough, No Dry, No Shortness of breath, No SOB with excertion, No Wheezing, No Hemoptysis, No Pleuritic Pain, No Sputum, No Other Gastrointestinal: No Nausea, No Vomiting, No Abdominal Pain, No Diarrhea, No Constipation, No Melena, No Hematochezia, No Other Genitourinary: No Dysuria, No Frequency, No Incontinence, No Hematuria, No Retention, No Other Musculoskeletal: No other, No neck pain, No shoulder pain, No arm pain; back pain; No hand pain, No leg pain, No foot pain Skin: No Rash, No Lesions, No Jaundice, No Bruising, No Other Objective Vitals Vital Signs Date Time Temp Pulse Resp B/P (MAP) Pulse Ox O2 Delivery O2 Flow Rate FiO2 11/03/25 09:00 97.5 75 16 101/57 (72) 99 97.5 11/02/25 20:00 Nasal Cannula* 1 24 Intake/Output Intake and Output 11/03/25 07:00 Intake Total 1840 ml Output Total 1275 ml Balance 565 ml Intake Oral 1840 ml Output Urine Total 1275 ml # Voids 2 # Bowel Movements 2 Medications Current Medications Medications Dose Ordered Sig/Juan Route Start Time Stop Time Status Last Admin Dose Admin Acetaminophen/ Hydrocodone Bitart 1 tab Q4HP PRN PO 10/25/25 22:00 11/02/25 22:49 1 TAB Enoxaparin Sodium 40 mg DAILY SC 10/26/25 10:00 11/03/25 09:46 40 MG Nitroglycerin 0.4 mg Q5MINP PRN SL 10/25/25 22:00 Morphine Sulfate 2 mg Q30M PRN IV 10/25/25 22:00 Polyethylene Glycol 17 gm DAILY PO 10/26/25 10:00 11/03/25 09:46 17 GM Pantoprazole Sodium 40 mg DAILY@0600 PO 10/26/25 06:00 11/03/25 06:42 40 MG Clopidogrel Bisulfate 75 mg DAILY PO 10/26/25 10:00 11/03/25 09:45 75 MG Atorvastatin Calcium 40 mg HS PO 10/26/25 22:00 11/02/25 22:49 40 MG Finasteride 5 mg DAILY PO 10/26/25 10:00 11/03/25 09:45 5 MG Pregabalin 50 mg TID PO 10/26/25 06:00 11/03/25 06:42 50 MG Docusate Sodium 100 mg DAILYPRN PRN PO 10/26/25 15:15 10/27/25 22:03 100 MG Lactulose 30 ml BIDPRN PRN PO 11/01/25 13:15 Laboratory Results Laboratory Tests 10/31/25 07:56 Urinalysis Test 10/26/25 00:06 11/02/25 15:11 Urine Mucus Few (None Seen) Urine Color Colorless (Yellow) Urine Clarity Turbid (Clear) H Urine pH 8.0 (5.0-9.0) Urine Specific [place] 1.012 (1.001-1.035) Urine Protein 1+ (Negative) H Urine Ketones Negative (Negative) Urine Blood 2+ /uL (Negative) H Urine Nitrite Negative (Negative) Urine Bilirubin Negative (Negative) Urine Urobilinogen Normal mg/dL (Negative) Urine Leukocyte Esterase 3+ /uL (Negative) Urine RBC 6 /hpf (0 - 3) Urine WBC Clumps Present /hpf (None Seen) Urine Microscopic WBC 263 /HPF (0-3) H Urine Squamous Epithelial Cells None seen /hpf (<5) Urine Amorphous Crystals Few /hpf (None Seen) Urine Bacteria Few /hpf (None Seen) H Urine Glucose Normal mg/dL (Normal) Microbiology Microbiology Date/Time Source Procedure Growth Status 11/02/25 15:11 Voided Urine Urine Culture - Preliminary Resulted Labs and/or images reviewed: Labs reviewed by me, Image(s) reviewed by me Assessment/Plan Assessment/Plan Sepsis secondary to urinary tract infection: Urine cultures growing Gram- negative rods final culture result pending: Continue Rocephin Noncardiac chest pain troponin negative, EKG normal, cardiology consult by Dr. 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 Hypertension Hypercholesterolemia History of CVA Bed-bound x 2 yrs BPH GERD Hearing impaired Chronic Constipation: Colace lactulose Proctocolitis by CT abdomen pelvis without contrast: Rocephin IV and Flagyl IV D-dimer mildly elevated 0.80 DVT ruled out Pulmonary embolism ruled out Time Spent 68 minutes Advanced care planning time 20 minutes Patient is full code Lori [phone] at bedside Plan discussed with: Patient My Orders Orders - JULIA LATIF MD Procedure Category Date Status Time Urine Bacterial CORWIN 11/02/25 In Process Culture 15:03 Ct Ab Pel Wo Con-No CT 11/02/25 Resulted Oral Or Iv 15:03 Date of Service: Nov 03, 2025 Billing Provider: JULIA LATIF MD Common Visit Codes: [id number] INP/OBS CARE(HIGH) JULIA LATIF MD Nov 03, 2025 11:20
--- NOTE | 2025-11-03 11:57 | DVHPN2 ---
Progress Note - Dictate Date Seen: Nov 01, 2025 Medical Necessity Reason Pt with a Central, PICC or Fol: No Subjective PT WITH SS COMPLEX OF CHEST PAIN TROPONIN NEGATIVE ECG NO ACUTE CHANGES PMH ; ORGANIC HD HTN CAD S/P PTCA STENT 2021 HX OF NM SSS S/P DUAL PPI GERD BPH HX OF CVA NOW BED BOUND vital signs Vital Sign Date Time Temp Pulse Resp B/P (MAP) Pulse Ox O2 Delivery O2 Flow Rate FiO2 11/03/25 09:00 97.5 75 16 101/57 (72) 99 97.5 11/02/25 20:00 Nasal Cannula* 1 24 Total Intake and Output 11/02/25 11/02/25 11/03/25 15:00 23:00 07:00 Intake Total 480 ml 660 ml 700 ml Output Total 725 ml 550 ml Balance 480 ml -65 ml 150 ml medications Current Medications Medications Dose Ordered Sig/Juan Route Start Time Stop Time Status Last Admin Dose Admin Acetaminophen/ Hydrocodone Bitart 1 tab Q4HP PRN PO 10/25/25 22:00 11/02/25 22:49 1 TAB Enoxaparin Sodium 40 mg DAILY SC 10/26/25 10:00 11/03/25 09:46 40 MG Nitroglycerin 0.4 mg Q5MINP PRN SL 10/25/25 22:00 Morphine Sulfate 2 mg Q30M PRN IV 10/25/25 22:00 Polyethylene Glycol 17 gm DAILY PO 10/26/25 10:00 11/03/25 09:46 17 GM Pantoprazole Sodium 40 mg DAILY@0600 PO 10/26/25 06:00 11/03/25 06:42 40 MG Clopidogrel Bisulfate 75 mg DAILY PO 10/26/25 10:00 11/03/25 09:45 75 MG Atorvastatin Calcium 40 mg HS PO 10/26/25 22:00 11/02/25 22:49 40 MG Finasteride 5 mg DAILY PO 10/26/25 10:00 11/03/25 09:45 5 MG Pregabalin 50 mg TID PO 10/26/25 06:00 11/03/25 06:42 50 MG Docusate Sodium 100 mg DAILYPRN PRN PO 10/26/25 15:15 10/27/25 22:03 100 MG Lactulose 30 ml BIDPRN PRN PO 11/01/25 13:15 Ceftriaxone Sodium 50 ml @ 100 mls/hr DAILY@09 IV 11/04/25 09:00 Metronidazole 100 ml @ 100 mls/hr Q8HR IV 11/03/25 14:00 laboratory and microbiology Laboratory Tests 10/31/25 07:56 Test 10/31/25 07:56 Range/Units Serum Glucose 111 H 74-106 mg/dL Problem List SS COMPLEX OF CHEST PAIN TROPONIN NEGATIVE ECG NO ACUTE CHANGES PMH ; ORGANIC HD HTN CAD S/P PTCA STENT 2021 HX OF NM SSS S/P DUAL PPI GERD BPH HX OF CVA NOW BED BOUND PT BEING BED BOUND R/O PE LE VENOUS DOPPLER Assessment/Plan ECHO EF >55% CTA LUNG LE VENOUS DOPPLER NEGATIVE FOR DVT D DIMER PENDING Dietary Evaluation Review Comments: Nutrition Recommendation: 1) Satya 1 pk BID, MVI w/ minerals 1 tab daily, VitC 500mg BID, Zinc sulfate 220mg BID x 10 days 2) Consider Regular diet 3) Ensure High Protein 240ml TID 4) Monitor PO intake, lab values, weight trend, and I/O Expected Outcomes/Goals: Wound to improve FU 3-5 days Plan discussed with: Patient, Spouse ALOK PAZ MD Nov 03, 2025 11:57
[2025-11-04] VITALS (9 sets, daily range): BP systolic 101–122; BP diastolic 55–69; PULSE 67–76; RESP 16–70; TEMP 97.4–98.6; O2SAT 98–100
--- NOTE | 2025-11-04 11:20 | DVHPN2 ---
Reviewed: Care Plan, H&P, Labs Changes from previous H/P or p: No Changes General: Per HPI Eyes: No Pain, No Vision change, No Conjunctivae inflammation, No Eyelid inflammation, No Other, No Redness ENT: Other Cardiovascular: Chest Pain, Palpitations Respiratory: No Cough, No Dry, No Shortness of breath, No SOB with excertion, No Wheezing, No Hemoptysis, No Pleuritic Pain, No Sputum, No Other Gastrointestinal: No Nausea, No Vomiting, No Abdominal Pain, No Diarrhea, No Constipation, No Melena, No Hematochezia, No Other Genitourinary: No Dysuria, No Frequency, No Incontinence, No Hematuria, No Retention, No Other Musculoskeletal: back pain Skin: No Rash, No Lesions, No Jaundice, No Bruising, No Other Objective Vitals Vital Signs Date Time Temp Pulse Resp B/P (MAP) Pulse Ox O2 Delivery O2 Flow Rate FiO2 11/04/25 10:00 98.5 70 70 102/63 (76) 100 98.5 11/03/25 20:00 Nasal Cannula* 1 24 Intake/Output Intake and Output 11/04/25 07:00 Intake Total 5420 ml Output Total 3000 ml Balance 2420 ml Intake Oral 5070 ml IV Total 350 ml Output Urine Total 3000 ml Medications Current Medications Medications Dose Ordered Sig/Juan Route Start Time Stop Time Status Last Admin Dose Admin Enoxaparin Sodium 40 mg DAILY SC 10/26/25 10:00 11/04/25 09:45 40 MG Nitroglycerin 0.4 mg Q5MINP PRN SL 10/25/25 22:00 Polyethylene Glycol 17 gm DAILY PO 10/26/25 10:00 11/04/25 09:44 17 GM Pantoprazole Sodium 40 mg DAILY@0600 PO 10/26/25 06:00 11/04/25 05:15 40 MG Clopidogrel Bisulfate 75 mg DAILY PO 10/26/25 10:00 11/04/25 09:44 75 MG Atorvastatin Calcium 40 mg HS PO 10/26/25 22:00 11/03/25 22:01 40 MG Finasteride 5 mg DAILY PO 10/26/25 10:00 11/04/25 09:44 5 MG Pregabalin 50 mg TID PO 10/26/25 06:00 11/04/25 05:15 50 MG Docusate Sodium 100 mg DAILYPRN PRN PO 10/26/25 15:15 10/27/25 22:03 100 MG Lactulose 30 ml BIDPRN PRN PO 11/01/25 13:15 Ceftriaxone Sodium 50 ml @ 100 mls/hr DAILY@09 IV 11/04/25 09:00 11/04/25 09:44 100 MLS/HR Metronidazole 100 ml @ 100 mls/hr Q8HR IV 11/03/25 14:00 11/04/25 05:14 100 MLS/HR Laboratory Results Laboratory Tests 10/31/25 07:56 Urinalysis Test 10/26/25 00:06 11/02/25 15:11 Urine Mucus Few (None Seen) Urine Color Colorless (Yellow) Urine Clarity Turbid (Clear) H Urine pH 8.0 (5.0-9.0) Urine Specific [place] 1.012 (1.001-1.035) Urine Protein 1+ (Negative) H Urine Ketones Negative (Negative) Urine Blood 2+ /uL (Negative) H Urine Nitrite Negative (Negative) Urine Bilirubin Negative (Negative) Urine Urobilinogen Normal mg/dL (Negative) Urine Leukocyte Esterase 3+ /uL (Negative) Urine RBC 6 /hpf (0 - 3) Urine WBC Clumps Present /hpf (None Seen) Urine Microscopic WBC 263 /HPF (0-3) H Urine Squamous Epithelial Cells None seen /hpf (<5) Urine Amorphous Crystals Few /hpf (None Seen) Urine Bacteria Few /hpf (None Seen) H Urine Glucose Normal mg/dL (Normal) Microbiology Microbiology Date/Time Source Procedure Growth Status 11/02/25 15:11 Voided Urine Urine Culture - Preliminary Resulted Labs and/or images reviewed: Labs reviewed by me, Image(s) reviewed by me Assessment/Plan Assessment/Plan Sepsis secondary to urinary tract infection: Urine cultures growing Gram- negative rods final culture result pending: Continue Rocephin Noncardiac chest pain troponin negative, EKG normal, cardiology consult by Dr. Cardona appreciated ejection fraction 55 % Coronary artery disease status post PCI stents 2021 History of sick Sinus syndrome Status post dual-chamber pacemaker Hypertension Hypercholesterolemia History of CVA Bed-bound x 2 yrs BPH GERD Hearing impaired Chronic Constipation: Colace lactulose Proctocolitis by CT abdomen pelvis without contrast: Rocephin IV and Flagyl IV D-dimer mildly elevated 0.80 DVT ruled out Pulmonary embolism ruled out Time Spent 68 minutes Advanced care planning time 20 minutes Patient is full code Lori [phone] at bedside Plan discussed with: Patient My Orders Orders - JULIA LATIF MD Procedure Category Date Status Time Metronidazole [facility] 11/03/25 In Process 500mg/100ml (Flagyl 14:00 Date of Service: Nov 04, 2025 Billing Provider: JULIA LATIF MD Common Visit Codes: [id number] INP/OBS CARE(HIGH) JULIA LATIF MD Nov 04, 2025 11:20
--- NOTE | 2025-11-04 15:28 | DVHPN2 ---
Progress Note - Dictate Date Seen: Nov 04, 2025 Medical Necessity Reason Pt with a Central, PICC or Fol: No Subjective PT WITH SS COMPLEX OF CHEST PAIN TROPONIN NEGATIVE ECG NO ACUTE CHANGES PMH ; ORGANIC HD HTN CAD S/P PTCA STENT 2021 HX OF NM SSS S/P DUAL PPI GERD BPH HX OF CVA NOW BED BOUND vital signs Vital Sign Date Time Temp Pulse Resp B/P (MAP) Pulse Ox O2 Delivery O2 Flow Rate FiO2 11/04/25 14:30 98.6 72 20 101/56 (71) 98 98.6 11/04/25 08:00 Nasal Cannula* 1 24 Total Intake and Output 11/03/25 11/03/25 11/04/25 15:00 23:00 07:00 Intake Total 1810 ml 3310 ml 300 ml Output Total 1500 ml 1500 ml Balance 1810 ml 1810 ml -1200 ml medications Current Medications Medications Dose Ordered Sig/Juan Route Start Time Stop Time Status Last Admin Dose Admin Enoxaparin Sodium 40 mg DAILY SC 10/26/25 10:00 11/04/25 09:45 40 MG Nitroglycerin 0.4 mg Q5MINP PRN SL 10/25/25 22:00 Polyethylene Glycol 17 gm DAILY PO 10/26/25 10:00 11/04/25 09:44 17 GM Pantoprazole Sodium 40 mg DAILY@0600 PO 10/26/25 06:00 11/04/25 05:15 40 MG Clopidogrel Bisulfate 75 mg DAILY PO 10/26/25 10:00 11/04/25 09:44 75 MG Atorvastatin Calcium 40 mg HS PO 10/26/25 22:00 11/03/25 22:01 40 MG Finasteride 5 mg DAILY PO 10/26/25 10:00 11/04/25 09:44 5 MG Pregabalin 50 mg TID PO 10/26/25 06:00 11/04/25 14:28 50 MG Docusate Sodium 100 mg DAILYPRN PRN PO 10/26/25 15:15 10/27/25 22:03 100 MG Lactulose 30 ml BIDPRN PRN PO 11/01/25 13:15 Ceftriaxone Sodium 50 ml @ 100 mls/hr DAILY@09 IV 11/04/25 09:00 11/04/25 09:44 100 MLS/HR Metronidazole 100 ml @ 100 mls/hr Q8HR IV 11/03/25 14:00 11/04/25 14:28 100 MLS/HR laboratory and microbiology Laboratory Tests 10/31/25 07:56 Test 10/31/25 07:56 Range/Units Serum Glucose 111 H 74-106 mg/dL Problem List SS COMPLEX OF CHEST PAIN TROPONIN NEGATIVE ECG NO ACUTE CHANGES PMH ; ORGANIC HD HTN CAD S/P PTCA STENT 2021 HX OF NM SSS S/P DUAL PPI GERD BPH HX OF CVA NOW BED BOUND PT BEING BED BOUND R/O PE LE VENOUS DOPPLER Assessment/Plan ECHO EF >55% CTA LUNG LE VENOUS DOPPLER NEGATIVE FOR DVT D DIMER PT NEEDS REHAB TRANSFER TO SNF Dietary Evaluation Review Comments: Nutrition Recommendation: 1) Satya 1 pk BID, MVI w/ minerals 1 tab daily, VitC 500mg BID, Zinc sulfate 220mg BID x 10 days 2) Consider Regular diet 3) Ensure High Protein 240ml TID 4) Monitor PO intake, lab values, weight trend, and I/O Expected Outcomes/Goals: Wound to improve FU 3-5 days Plan discussed with: Patient ALOK PAZ MD Nov 04, 2025 15:28
[2025-11-05] VITALS (8 sets, daily range): BP systolic 95–108; BP diastolic 52–62; PULSE 75–84; RESP 12–20; TEMP 97.4–98.4; O2SAT 97–99
--- NOTE | 2025-11-05 09:33 | DVHPN2 ---
Reviewed: Care Plan, H&P, Labs Changes from previous H/P or p: No Changes General: Per HPI Eyes: No Pain, No Vision change, No Conjunctivae inflammation, No Eyelid inflammation, No Other, No Redness ENT: Other Cardiovascular: Chest Pain, Palpitations Respiratory: No Cough, No Dry, No Shortness of breath, No SOB with excertion, No Wheezing, No Hemoptysis, No Pleuritic Pain, No Sputum, No Other Gastrointestinal: No Nausea, No Vomiting, No Abdominal Pain, No Diarrhea, No Constipation, No Melena, No Hematochezia, No Other Genitourinary: No Dysuria, No Frequency, No Incontinence, No Hematuria, No Retention, No Other Musculoskeletal: back pain Skin: No Rash, No Lesions, No Jaundice, No Bruising, No Other Objective Vitals Vital Signs Date Time Temp Pulse Resp B/P (MAP) Pulse Ox O2 Delivery O2 Flow Rate FiO2 11/05/25 07:49 97.9 79 18 97/60 (72) 99 97.9 11/04/25 20:00 Nasal Cannula* 2 28 Intake/Output Intake and Output 11/05/25 07:00 Intake Total 2150 ml Output Total 3000 ml Balance -850 ml Intake Oral 1800 ml IV Total 350 ml Output Urine Total 3000 ml # Bowel Movements 1 Medications Current Medications Medications Dose Ordered Sig/Juan Route Start Time Stop Time Status Last Admin Dose Admin Enoxaparin Sodium 40 mg DAILY SC 10/26/25 10:00 11/04/25 09:45 40 MG Nitroglycerin 0.4 mg Q5MINP PRN SL 10/25/25 22:00 Polyethylene Glycol 17 gm DAILY PO 10/26/25 10:00 11/04/25 09:44 17 GM Pantoprazole Sodium 40 mg DAILY@0600 PO 10/26/25 06:00 11/05/25 05:43 40 MG Clopidogrel Bisulfate 75 mg DAILY PO 10/26/25 10:00 11/04/25 09:44 75 MG Atorvastatin Calcium 40 mg HS PO 10/26/25 22:00 11/04/25 22:24 40 MG Finasteride 5 mg DAILY PO 10/26/25 10:00 11/04/25 09:44 5 MG Pregabalin 50 mg TID PO 10/26/25 06:00 11/05/25 05:43 50 MG Docusate Sodium 100 mg DAILYPRN PRN PO 10/26/25 15:15 10/27/25 22:03 100 MG Lactulose 30 ml BIDPRN PRN PO 11/01/25 13:15 Ceftriaxone Sodium 50 ml @ 100 mls/hr DAILY@09 IV 11/04/25 09:00 11/04/25 09:44 100 MLS/HR Metronidazole 100 ml @ 100 mls/hr Q8HR IV 11/03/25 14:00 11/05/25 05:43 100 MLS/HR Laboratory Results Laboratory Tests 10/31/25 07:56 Urinalysis Test 10/26/25 00:06 11/02/25 15:11 Urine Mucus Few (None Seen) Urine Color Colorless (Yellow) Urine Clarity Turbid (Clear) H Urine pH 8.0 (5.0-9.0) Urine Specific [place] 1.012 (1.001-1.035) Urine Protein 1+ (Negative) H Urine Ketones Negative (Negative) Urine Blood 2+ /uL (Negative) H Urine Nitrite Negative (Negative) Urine Bilirubin Negative (Negative) Urine Urobilinogen Normal mg/dL (Negative) Urine Leukocyte Esterase 3+ /uL (Negative) Urine RBC 6 /hpf (0 - 3) Urine WBC Clumps Present /hpf (None Seen) Urine Microscopic WBC 263 /HPF (0-3) H Urine Squamous Epithelial Cells None seen /hpf (<5) Urine Amorphous Crystals Few /hpf (None Seen) Urine Bacteria Few /hpf (None Seen) H Urine Glucose Normal mg/dL (Normal) Microbiology Microbiology Date/Time Source Procedure Growth Status 11/02/25 15:11 Voided Urine Urine Culture - Final Escherichia coli - ESBL Proteus mirabilis - ESBL Complete Labs and/or images reviewed: Labs reviewed by me, Image(s) reviewed by me Assessment/Plan Assessment/Plan Sepsis secondary to urinary tract infection: Urine cultures growing ESBL E coli and ESBL Proteus mirabilis, DC Rocephin start meropenem 1 g IV q.8 hours for two weeks Noncardiac chest pain troponin negative, EKG normal, cardiology consult by Dr. Cardona appreciated ejection fraction 55 % Coronary artery disease status post PCI stents 2021 History of sick Sinus syndrome Status post dual-chamber pacemaker Hypertension Hypercholesterolemia History of CVA Bed-bound x 2 yrs BPH GERD Hearing impaired Chronic Constipation: Colace lactulose Proctocolitis: Continue Flagyl and meropenem D-dimer mildly elevated 0.80 DVT ruled out Pulmonary embolism ruled out Time Spent 68 minutes Advanced care planning time 20 minutes Patient is full code Lori [phone] at bedside Plan discussed with: Patient Date of Service: Nov 05, 2025 Billing Provider: JULIA LATIF MD Common Visit Codes: [id number] INP/OBS CARE(HIGH) JULIA LATIF MD Nov 05, 2025 09:33
[2025-11-05] MEDS: MEROPENEM 1GM IVPB 50 ML IV SCH (10:28)
[2025-11-05] MEDS: LACTULOSE 20Gm/30ML SOLN PO PRN (21:27)
[2025-11-06] VITALS (9 sets, daily range): BP systolic 93–109; BP diastolic 45–60; PULSE 60–78; RESP 16–19; TEMP 97–98; O2SAT 97–99
--- NOTE | 2025-11-06 09:25 | DVHDS2 ---
Discharge Summary Date of Admission Oct 25, 2025 at 21:58 Date of Discharge: Nov 06, 2025 Admitting Diagnosis Generalized weakness altered mental status Wounds: None Labs/Diagnostic Data: Laboratory Results Test 11/02/25 15:11 10/31/25 14:35 10/31/25 07:56 10/26/25 10:02 Urine Color Colorless (Yellow) Urine Clarity Turbid (Clear) Urine pH 8.0 (5.0-9.0) Urine Specific [place] 1.012 (1.001-1.035) Urine Protein 1+ (Negative) Urine Ketones Negative (Negative) Urine Blood 2+ /uL (Negative) Urine Nitrite Negative (Negative) Urine Bilirubin Negative (Negative) Urine Urobilinogen Normal mg/dL (Negative) Urine Leukocyte Esterase 3+ /uL (Negative) Urine RBC 6 /hpf (0 - 3) Urine WBC Clumps Present /hpf (None Seen) Urine Microscopic WBC 263 /HPF (0-3) Urine Squamous Epithelial Cells None seen /hpf (<5) Urine Amorphous Crystals Few /hpf (None Seen) Urine Bacteria Few /hpf (None Seen) Urine Glucose Normal mg/dL (Normal) D-Dimer, Quantitative 0.93 mg/L FEU (0.0-0.49) White Blood Count 10.8 10^3/uL (4.4-10.8) Red Blood Count 3.86 10^6/uL (4.5-5.90) Hemoglobin 12.3 g/dL (13.5-17.5) Hematocrit 35.9 % (41.0-53.0) Mean Corpuscular Volume 93.0 fL (80.0-100.0) Mean Corpuscular Hemoglobin 31.9 pg (28.0-32.0) Mean Corpuscular Hemoglobin Concent 34.3 g/dL (32.0-36.0) Red Cell Distribution Width 14.6 % (11.8-14.3) Platelet Count 156 10^3/uL (140-450) Mean Platelet Volume 9.5 fL (6.9-10.8) Neutrophils (%) (Auto) 77.6 % (37.0-80.0) Lymphocytes (%) (Auto) 12.5 % (10.0-50.0) Monocytes (%) (Auto) 7.6 % (0.0-12.0) Eosinophils (%) (Auto) 2.0 % (0.0-7.0) Basophils (%) (Auto) 0.3 % (0.0-2.0) Neutrophils # (Auto) 8.4 10 ^3/uL (1.6-8.6) Lymphocytes # (Auto) 1.3 10 ^3/uL (0.4-5.4) Monocytes # (Auto) 0.8 10 ^3/uL (0-1.3) Eosinophils # (Auto) 0.2 10 ^3/uL (0-0.8) Basophils # (Auto) 0 10 ^3/uL (0-0.2) Nucleated Red Blood Cells 0.0 % Sodium Level 142 mmol/L (136-145) Potassium Level 3.4 mmol/L (3.5-5.1) Chloride Level 107 mmol/L (98-107) Carbon Dioxide Level 26 mmol/L (20-31) Anion Gap 9 (5-15) Blood Urea Nitrogen 16 mg/dL (9-23) Creatinine 0.62 mg/dL (0.700-1.30) Glomerular Filtration Rate Calc 97 mL/min (>90) BUN/Creatinine Ratio 25.8 (10.0-20.0) Serum Glucose 111 mg/dL (74-106) Calcium Level 8.4 mg/dL (8.7-10.4) Total Bilirubin 0.6 mg/dL (0.2-1.0) Aspartate Amino Transferase (AST) 20 U/L (13-40) Alanine Aminotransferase (ALT) 11 U/L (7-40) Alkaline Phosphatase 55 U/L (46-116) Total Protein 5.2 g/dL (5.7-8.2) Albumin 2.7 g/dL (3.2-4.8) Hemoglobin A1c 5.2 % A1C (<5.7) Triglycerides Level 65 mg/dL (< 150) Cholesterol Level 90 mg/dL (< 200) LDL Cholesterol 47 mg/dL (< 100) HDL Cholesterol 28 mg/dL (40-59) Vitamin B12 Level 643 pg/mL (211-911) Vitamin D 25-Hydroxy 74.4 ng/mL (30.0-100) Thyroid Stimulating Hormone (TSH) 1.56 uIU/mL (0.55-4.78) Test 10/26/25 00:06 10/25/25 21:09 Urine Mucus Few (None Seen) Troponin I High Sensitivity 13 ng/L (</=54) Other Laboratory Tests 10/31/25 07:56 Brief Hx & Hospital Course: 79-year-old male with multiple medical problems including hypertension hypercholesterolemia CVA bed-bound for the last two years BPH GERD hearing impaired chronic constipation coronary artery disease status post stents 2021 came in for altered mental status and confusion. Found to have sepsis secondary to urinary tract infection treated with Rocephin urine cultures came back positive for ESBL E coli and ESBL Proteus mirabilis. Rocephin discontinued started on Mirapex 1 g IV q.8 hours which he will receive for three weeks in the [facility] also had proctocolitis started on Rocephin and Flagyl. Rocephin discontinued on Flagyl be continued for two more weeks. Patient was seen by Cardiology Dr. Cardona diagnosed with a noncardiac chest pain. Discussed with the patient's danger at bedside and the patient is being discharged to group home facility for IV antibiotics and physical therapy and rehab. Condition poor but stable at the time of discharge Consults/Reason for consult Cardiology Dr. Cardona Operations or Procedures CT abdomen pelvis without contrast Condition at Discharge: Fair Final Diagnosis/Problems List Sepsis secondary to urinary tract infection: Urine cultures growing ESBL E coli and ESBL Proteus mirabilis, DC Rocephin start meropenem 1 g IV q.8 hours for two weeks Noncardiac chest pain troponin negative, EKG normal, cardiology consult by Dr. Cardona appreciated ejection fraction 55 % Coronary artery disease status post PCI stents 2021 History of sick Sinus syndrome Status post dual-chamber pacemaker Hypertension Hypercholesterolemia History of CVA Bed-bound x 2 yrs BPH GERD Hearing impaired Chronic Constipation: Colace lactulose Proctocolitis: Continue Flagyl and meropenem D-dimer mildly elevated 0.80 DVT ruled out Pulmonary embolism ruled out Discharge Disposition: Intermediate Facility Discharge Instruct/Medications Diet: Cardiac 2g Na,low cholest Activity: Bed rest Follow Up/Referral: Follow up with the [facility] Medications: Meropenem 1 g IV q.8 hours for 21 days for complicated UTI Flagyl 500 mg IV q.8 hours for 14 days for proctitis Scheduled Clopidogrel Bisulfate (Plavix), 1 TAB PO DAILY, (Reported) Midodrine HCl (Midodrine Hydrochloride), 5 MG PO PRN, (Reported) Nitroglycerin (Ntrostat Sublingual), Unknown Dose SL PRN, (Reported) Miscellaneous Medications Ondansetron Odt 4MG Tab (Zofran Po), MG PO, (Reported) 39 (Time taken for discharge summary 39 minutes) Discharge Statement: "Patient was advised to return to the ER or call 911 if any headaches, dizziness, shortness of breath, chest pain, abdominal pain, bleeding, fevers, or worsening of medical condition. Patient was counseled about treatment plan, medications, possible side effects, patientverbalized understanding. All questions were answered to the best of my ability. This discharge took greater then 30 minutes in planning, reviewing documentation, counseling the patient, and discussing with other team members." ASSESSMENT ASSESSMENT Assessment Sepsis secondary to urinary tract infection: Urine cultures growing ESBL E coli and ESBL Proteus mirabilis, DC Rocephin start meropenem 1 g IV q.8 hours for two weeks Noncardiac chest pain troponin negative, EKG normal, cardiology consult by Dr. Cardona appreciated ejection fraction 55 % Coronary artery disease status post PCI stents 2021 History of sick Sinus syndrome Status post dual-chamber pacemaker Hypertension Hypercholesterolemia History of CVA Bed-bound x 2 yrs BPH GERD Hearing impaired Chronic Constipation: Colace lactulose Proctocolitis: Continue Flagyl and meropenem D-dimer mildly elevated 0.80 DVT ruled out Pulmonary embolism ruled out Date of Service: Nov 06, 2025 Billing Provider: JULIA LATIF MD Common Visit Codes: [id number] DISCH DAY >30min JULIA LATIF MD Nov 06, 2025 09:25
--- NOTE | 2025-11-06 10:39 | DVHPN2 ---
Progress Note - Dictate Date Seen: Nov 05, 2025 Medical Necessity Reason Pt with a Central, PICC or Fol: No Subjective PT WITH SS COMPLEX OF CHEST PAIN TROPONIN NEGATIVE ECG NO ACUTE CHANGES PMH ; ORGANIC HD HTN CAD S/P PTCA STENT 2021 HX OF ME SSS S/P DUAL PPI GERD BPH HX OF CVA NOW BED BOUND vital signs Vital Sign Date Time Temp Pulse Resp B/P (MAP) Pulse Ox O2 Delivery O2 Flow Rate FiO2 11/06/25 08:04 97.7 60 18 98/55 (69) 99 97.7 11/05/25 20:00 Nasal Cannula* 2 28 Total Intake and Output 11/05/25 11/05/25 11/06/25 15:00 23:00 07:00 Intake Total 150 ml 820 ml 750 ml Output Total 900 ml 1550 ml Balance 150 ml -80 ml -800 ml medications Current Medications Medications Dose Ordered Sig/Juan Route Start Time Stop Time Status Last Admin Dose Admin Enoxaparin Sodium 40 mg DAILY SC 10/26/25 10:00 11/06/25 10:24 40 MG Nitroglycerin 0.4 mg Q5MINP PRN SL 10/25/25 22:00 Polyethylene Glycol 17 gm DAILY PO 10/26/25 10:00 11/06/25 10:22 17 GM Pantoprazole Sodium 40 mg DAILY@0600 PO 10/26/25 06:00 11/06/25 05:33 40 MG Clopidogrel Bisulfate 75 mg DAILY PO 10/26/25 10:00 11/06/25 10:23 75 MG Atorvastatin Calcium 40 mg HS PO 10/26/25 22:00 11/05/25 21:09 40 MG Finasteride 5 mg DAILY PO 10/26/25 10:00 11/06/25 10:22 5 MG Pregabalin 50 mg TID PO 10/26/25 06:00 11/06/25 05:34 50 MG Docusate Sodium 100 mg DAILYPRN PRN PO 10/26/25 15:15 10/27/25 22:03 100 MG Lactulose 30 ml BIDPRN PRN PO 11/01/25 13:15 11/05/25 21:27 30 ML Metronidazole 100 ml @ 100 mls/hr Q8HR IV 11/03/25 14:00 11/06/25 05:33 100 MLS/HR Meropenem 50 ml @ 17 mls/hr Q8HR IV 11/05/25 10:00 11/06/25 06:40 17 MLS/HR laboratory and microbiology Laboratory Tests 10/31/25 07:56 Test 10/31/25 07:56 Range/Units Serum Glucose 111 H 74-106 mg/dL Problem List SS COMPLEX OF CHEST PAIN TROPONIN NEGATIVE ECG NO ACUTE CHANGES PMH ; ORGANIC HD HTN CAD S/P PTCA STENT 2021 HX OF ME SSS S/P DUAL PPI GERD BPH HX OF CVA NOW BED BOUND PT BEING BED BOUND R/O PE LE VENOUS DOPPLER Assessment/Plan ECHO EF >55% CTA LUNG LE VENOUS DOPPLER NEGATIVE FOR DVT D DIMER PT NEEDS REHAB TRANSFER TO SNF Dietary Evaluation Review Comments: Nutrition Recommendation: 1) Satya 1 pk BID, MVI w/ minerals 1 tab daily, VitC 500mg BID, Zinc sulfate 220mg BID x 10 days 2) Consider Regular diet 3) Ensure High Protein 240ml TID 4) Monitor PO intake, lab values, weight trend, and I/O Expected Outcomes/Goals: Wound to improve FU 3-5 days Plan discussed with: Patient, Spouse ALOK PAZ MD Nov 06, 2025 10:39
[2025-11-06 16:47] LABS: COVID19 ANTIGEN SOFIA FIA NEGATIVE (NEGATIVE)
[2025-11-07 01:00] VITALS: BP 95/61; PULSE 76; RESP 18; TEMP 98; O2SAT 98
[2025-11-07 05:00] VITALS: BP 98/62; PULSE 73; RESP 18; TEMP 97.9; O2SAT 96
[2025-11-07 08:00] VITALS: PULSE 79; PULSE 81; RESP 16; O2SAT 99
--- NOTE | 2025-11-07 09:37 | DVHPN2 ---
Reviewed: Care Plan, H&P, Labs Changes from previous H/P or p: No Changes General: Per HPI Eyes: No Pain, No Vision change, No Conjunctivae inflammation, No Eyelid inflammation, No Other, No Redness ENT: Other Cardiovascular: Chest Pain, Palpitations Respiratory: No Cough, No Dry, No Shortness of breath, No SOB with excertion, No Wheezing, No Hemoptysis, No Pleuritic Pain, No Sputum, No Other Gastrointestinal: No Nausea, No Vomiting, No Abdominal Pain, No Diarrhea, No Constipation, No Melena, No Hematochezia, No Other Genitourinary: No Dysuria, No Frequency, No Incontinence, No Hematuria, No Retention, No Other Musculoskeletal: back pain Skin: No Rash, No Lesions, No Jaundice, No Bruising, No Other Objective Vitals Vital Signs Date Time Temp Pulse Resp B/P (MAP) Pulse Ox O2 Delivery O2 Flow Rate FiO2 11/07/25 08:00 81 16 99 Nasal Cannula* 2 28 11/07/25 05:00 97.9 98/62 (74) 97.9 Intake/Output Intake and Output 11/07/25 07:00 Intake Total 1930 ml Output Total 1200 ml Balance 730 ml Intake Oral 1680 ml IV Total 250 ml Output Urine Total 1200 ml # Bowel Movements 3 Medications Current Medications Medications Dose Ordered Sig/Juan Route Start Time Stop Time Status Last Admin Dose Admin Nitroglycerin 0.4 mg Q5MINP PRN SL 10/25/25 22:00 Polyethylene Glycol 17 gm DAILY PO 10/26/25 10:00 11/06/25 10:22 17 GM Pantoprazole Sodium 40 mg DAILY@0600 PO 10/26/25 06:00 11/07/25 05:16 40 MG Clopidogrel Bisulfate 75 mg DAILY PO 10/26/25 10:00 11/06/25 10:23 75 MG Atorvastatin Calcium 40 mg HS PO 10/26/25 22:00 11/06/25 21:12 40 MG Finasteride 5 mg DAILY PO 10/26/25 10:00 11/06/25 10:22 5 MG Pregabalin 50 mg TID PO 10/26/25 06:00 11/07/25 05:16 50 MG Docusate Sodium 100 mg DAILYPRN PRN PO 10/26/25 15:15 10/27/25 22:03 100 MG Lactulose 30 ml BIDPRN PRN PO 11/01/25 13:15 11/05/25 21:27 30 ML Metronidazole 100 ml @ 100 mls/hr Q8HR IV 11/03/25 14:00 11/07/25 05:15 100 MLS/HR Meropenem 50 ml @ 17 mls/hr Q8HR IV 11/05/25 10:00 11/07/25 06:59 17 MLS/HR Laboratory Results Laboratory Tests 10/31/25 07:56 Urinalysis Test 10/26/25 00:06 11/02/25 15:11 Urine Mucus Few (None Seen) Urine Color Colorless (Yellow) Urine Clarity Turbid (Clear) H Urine pH 8.0 (5.0-9.0) Urine Specific [place] 1.012 (1.001-1.035) Urine Protein 1+ (Negative) H Urine Ketones Negative (Negative) Urine Blood 2+ /uL (Negative) H Urine Nitrite Negative (Negative) Urine Bilirubin Negative (Negative) Urine Urobilinogen Normal mg/dL (Negative) Urine Leukocyte Esterase 3+ /uL (Negative) Urine RBC 6 /hpf (0 - 3) Urine WBC Clumps Present /hpf (None Seen) Urine Microscopic WBC 263 /HPF (0-3) H Urine Squamous Epithelial Cells None seen /hpf (<5) Urine Amorphous Crystals Few /hpf (None Seen) Urine Bacteria Few /hpf (None Seen) H Urine Glucose Normal mg/dL (Normal) Microbiology Microbiology Date/Time Source Procedure Growth Status 11/02/25 15:11 Voided Urine Urine Culture - Final Escherichia coli - ESBL Proteus mirabilis - ESBL Complete Labs and/or images reviewed: Labs reviewed by me, Image(s) reviewed by me Assessment/Plan Assessment/Plan Sepsis secondary to urinary tract infection: Urine cultures growing ESBL E coli and ESBL Proteus mirabilis, DC Rocephin start meropenem 1 g IV q.8 hours for two weeks Noncardiac chest pain troponin negative, EKG normal, cardiology consult by Dr. Cardona appreciated ejection fraction 55 % Coronary artery disease status post PCI stents 2021 History of sick Sinus syndrome Status post dual-chamber pacemaker Hypertension Hypercholesterolemia History of CVA Bed-bound x 2 yrs BPH GERD Hearing impaired Chronic Constipation: Colace lactulose Proctocolitis: Continue Flagyl and meropenem D-dimer mildly elevated 0.80 DVT ruled out Pulmonary embolism ruled out Patient was discharged to [facility] on 11/06/2025 Patient now has isolation bed and will be going to the [facility] today Plan discussed with: Patient My Orders Orders - JULIA LATIF MD Procedure Category Date Status Time Discharge DISCHARGE 11/07/25 Transmitted 09:18 Communication Order ORDERS 11/07/25 Transmitted 09:33 Date of Service: Nov 07, 2025 Billing Provider: JULIA LATIF MD Common Visit Codes: [id number] INP/OBS CARE(HIGH) JULIA LATIF MD Nov 07, 2025 09:36
--- NOTE | 2025-11-07 17:12 | DVHPN2 ---
Progress Note - Dictate Date Seen: Nov 07, 2025 Medical Necessity Reason Pt with a Central, PICC or Fol: No Subjective PT WITH SS COMPLEX OF CHEST PAIN TROPONIN NEGATIVE ECG NO ACUTE CHANGES PMH ; ORGANIC HD HTN CAD S/P PTCA STENT 2021 HX OF [place] SSS S/P DUAL PPI GERD BPH HX OF CVA NOW BED BOUND vital signs Vital Sign Date Time Temp Pulse Resp B/P (MAP) Pulse Ox O2 Delivery O2 Flow Rate FiO2 11/07/25 08:00 79 11/07/25 08:00 16 99 Nasal Cannula* 2 28 11/07/25 05:00 97.9 98/62 (74) 97.9 Total Intake and Output 11/06/25 11/06/25 11/07/25 15:00 23:00 07:00 Intake Total 300 ml 780 ml 850 ml Output Total 1200 ml Balance 300 ml -420 ml 850 ml medications Current Medications Medications Dose Ordered Sig/Juan Route Start Time Stop Time Status Last Admin Dose Admin Nitroglycerin 0.4 mg Q5MINP PRN SL 10/25/25 22:00 Polyethylene Glycol 17 gm DAILY PO 10/26/25 10:00 11/07/25 10:48 17 GM Pantoprazole Sodium 40 mg DAILY@0600 PO 10/26/25 06:00 11/07/25 05:16 40 MG Clopidogrel Bisulfate 75 mg DAILY PO 10/26/25 10:00 11/07/25 10:49 75 MG Atorvastatin Calcium 40 mg HS PO 10/26/25 22:00 11/06/25 21:12 40 MG Finasteride 5 mg DAILY PO 10/26/25 10:00 11/07/25 10:49 5 MG Pregabalin 50 mg TID PO 10/26/25 06:00 11/07/25 05:16 50 MG Docusate Sodium 100 mg DAILYPRN PRN PO 10/26/25 15:15 10/27/25 22:03 100 MG Lactulose 30 ml BIDPRN PRN PO 11/01/25 13:15 11/05/25 21:27 30 ML Metronidazole 100 ml @ 100 mls/hr Q8HR IV 11/03/25 14:00 11/07/25 05:15 100 MLS/HR Meropenem 50 ml @ 17 mls/hr Q8HR IV 11/05/25 10:00 11/07/25 06:59 17 MLS/HR laboratory and microbiology Laboratory Tests 10/31/25 07:56 Test 10/31/25 07:56 Range/Units Serum Glucose 111 H 74-106 mg/dL Problem List SS COMPLEX OF CHEST PAIN TROPONIN NEGATIVE ECG NO ACUTE CHANGES PMH ; ORGANIC HD HTN CAD S/P PTCA STENT 2021 HX OF [place] SSS S/P DUAL PPI GERD BPH HX OF CVA NOW BED BOUND PT BEING BED BOUND R/O PE LE VENOUS DOPPLER Assessment/Plan ECHO EF >55% CTA LUNG LE VENOUS DOPPLER NEGATIVE FOR DVT D DIMER PT NEEDS REHAB TRANSFER TO SNF Dietary Evaluation Review Comments: Nutrition Recommendation: 1) Satya 1 pk BID, MVI w/ minerals 1 tab daily, VitC 500mg BID, Zinc sulfate 220mg BID x 10 days 2) Consider Regular diet 3) Ensure High Protein 240ml TID 4) Monitor PO intake, lab values, weight trend, and I/O Expected Outcomes/Goals: Wound to improve FU 3-5 days Plan discussed with: Patient ALOK PAZ MD Nov 07, 2025 17:12
== END 2025-11-07 13:12 | DRG 871 ==
LOC: ER 20:09 → EDBD 20:09 → OVERFLOW 21:58 → TELE-WESTW 10-26 02:54 → TELE-EAST 11-04 18:02
PROVIDERS: ADMIT Family Medicine; ATTEND Family Medicine
PROC: 05HA33Z Insertion of Infusion Device into Left Brachial Vein, Percutaneous Approach (ICD-10-PCS; principal; 2025-11-06)
PROC: B54NZZA Ultrasonography of Left Upper Extremity Veins, Guidance (ICD-10-PCS; 2025-11-06)
DX: A41.51 Sepsis due to Escherichia coli [E. coli] (principal); G93.41 Metabolic encephalopathy; G45.9 Transient cerebral ischemic attack, unspecified; E83.51 Hypocalcemia; D63.8 Anemia in other chronic diseases classified elsewhere; N39.0 Urinary tract infection, site not specified; L89.619 Pressure ulcer of right heel, unspecified stage; I11.9 Hypertensive heart disease without heart failure; Z16.12 Extended spectrum beta lactamase (ESBL) resistance; I25.10 Atherosclerotic heart disease of native coronary artery without angina pectoris; K21.9 Gastro-esophageal reflux disease without esophagitis; M72.0 Palmar fascial fibromatosis [Dupuytren]; N40.0 Benign prostatic hyperplasia without lower urinary tract symptoms; E78.00 Pure hypercholesterolemia, unspecified; G62.9 Polyneuropathy, unspecified; K59.09 Other constipation; Z74.01 Bed confinement status; Z95.5 Presence of coronary angioplasty implant and graft; Z86.73 Personal history of transient ischemic attack (TIA), and cerebral infarction without residual deficits; I25.2 Old myocardial infarction; Z95.0 Presence of cardiac pacemaker; Z79.899 Other long term (current) drug therapy
CPT/HCPCS: 36415; 71045; 71275; 74176; 80048; 80053; 80061; 81001; 82306; 82607; 83036; 84443; 84484; 85025; 85379; 87086; 87088; 87186; 87426; 93005; 93306; 93970; 97110; 97163; 99291; G0378; J2185; J3490